=== PATIENT | female | born 1935 | race Caucasian/White ===

== ENCOUNTER 2016-10-05 06:47 | Inpatient (IN) | payer MEDICARE ==
--- NOTE | 2016-09-27 20:52 | HP ---
HISTORY AND PHYSICAL: DATE OF ADMISSION/SURGERY: 10/05/16 DATE OF OFFICE VISIT: 09/24/16 SURGEON: Kaitlynn Sy MD (DICTATED BY MICHELLE KUHN) PROCEDURE: Left total knee arthroplasty. CHIEF COMPLAINT: Left knee pain. HISTORY OF PRESENT ILLNESS: Ms. Aguilar is a 80-year-old female with complaints of left knee pain secondary to advanced osteoarthritis. She has failed conservative management and has elected to proceed for the left total knee arthroplasty, which is scheduled for 10/05/[address] Sy. PAST MEDICAL HISTORY: Hypertension, diabetes, osteoarthritis, and chronic low back pain. PAST SURGICAL HISTORY: Left knee arthroscopy, cataract removal. CURRENT MEDICATIONS: 1. Pravastatin sodium 80 mg once a day. 2. Diltiazem 120 mg once a day. 3. Lisinopril and hydrochlorothiazide 20/12.5 one tab in the a.m., one tab in the p.m. 4. Tramadol 50 mg every 6 hours as needed. 5. Nortriptyline 10 mg 1 tab q.h.s. 6. Multivitamins. 7. Vitamin C. 8. [place]-3. 9. [place]-6. 10. Aspirin 81 mg once a day. 11. Echinacea 8 mg twice a day. 12. Vitamin D3. 13. Metformin 500 mg once a day. 14. Lyrica 75 mg once a day. 15. Toujeo SoloStar 300 units/mL 24 units daily. 16. Calcium carbonate. 17. Systane eyedrops. 18. Tylenol p.r.n. ALLERGIES: To SUDAFED. FAMILY HISTORY: Diabetes and heart disease. SOCIAL HISTORY: She is a 80-year-old female. She lives alone. She does not smoke, use drugs, or alcohol. REVIEW OF SYSTEMS: A complete 14-point review of systems was reviewed with the patient, was positive for diabetes. The rest was negative and noncontributory. PHYSICAL EXAMINATION GENERAL: She is well-developed, well-nourished. She is in no acute distress. VITAL SIGNS: She stands 5 feet 4 inches tall, weighs 185 pounds, blood pressure is 138/63, her heart rate is 87. HEENT: Normocephalic, atraumatic. NECK: Supple. No palpable lymph nodes. Trachea is midline. PULMONARY: The lungs are clear to auscultation. No wheezes, rhonchi, or rales. CARDIO: Regular rate and rhythm. Strong S1, S2. No murmurs, gallops, or rubs. No peripheral edema. ABDOMEN: The abdomen is soft, nontender, nondistended. MUSCULOSKELETAL: Left lower extremity: Skin is intact. She has a moderate joint effusion, tenderness over the medial and lateral joint line. Full range of motion. Her lower extremity muscle group strengths are intact at 5/5. She has 2+ dorsalis pedis pulses and intact sensation. NEUROLOGIC: She is alert and oriented x3. Cranial nerves II through XII are intact. ASSESSMENT AND PLAN: Ms. Aguilar is a 80-year-old female with complaints of left knee pain secondary to advanced osteoarthritis. She has failed conservative management and has elected to proceed with left total knee arthroplasty, which is scheduled for 10/05/[address] Sy discussed the risks and benefits of the surgery at today's visit and all of her questions were answered. Percocet, Coumadin, and Colace were sent to her pharmacy for postoperative pain control and DVT prophylaxis. She will see Dr. Sy back 14 days after the surgery. MICHELLE KUHN [id number]/[facility] #: [id number] MTDD
[~2016-10-05 06:47] MED LIST: Buffered Lidocaine 1% SYR 3ML* 3 ML/SYR SYRINGE INTRADERM ONE; Famotidine IV* 10 MG/ML 2 ML (20 mg) IV ONE; Metoclopramide IV* 5 MG/ML 2 ML VIAL IV SLOW PU ONE
[2016-10-05] MEDS ORDERED: fentaNYL* 50 MCG/ML 2 ML VIAL (100 MCG VIAL) ONE ×3 (07:06→09:06)
[2016-10-05] MEDS ORDERED: HYDROmorphone* 1 MG/ML 1 ML SYR ONE ×3 (07:06→10:30)
[2016-10-05] MEDS ORDERED: Morphine PF AMP (0.5MG/ML)* 5 MG/10 ML AMP ONE (07:07)
[2016-10-05] MEDS ORDERED: Midazolam* 1 MG/ML 2 ML VIAL (2 MG) ONE (07:07)
[2016-10-05] MEDS ORDERED: ceFAZolin 2 GM PREMIX(*) 2 GM/50 ML BAG IVPB ONE (07:08)
[2016-10-05] MEDS ORDERED: Metoclopramide IV* 5 MG/ML 2 ML VIAL ONE (07:08)
[2016-10-05] MEDS ORDERED: Famotidine IV* 10 MG/ML 2 ML (20 mg) ONE (07:08)
[2016-10-05] MEDS ORDERED: Propofol* 10 MG/ML 20 ML BTL IV PUSH ONE (07:09)
[2016-10-05] MEDS ORDERED: Dexmedetomidine* 200 MCG/2 ML 2 ML VIAL ONE ×2 (07:09→07:20)
[2016-10-05] MEDS ORDERED: Bupivacaine 0.5% SDV PF* 30 ML VIAL ONE (07:21)
[2016-10-05] MEDS ORDERED: DiMENhydriNATE IV* 50 MG/ML VIAL IV PUSH PRN ×2 (07:50→11:21)
[2016-10-05] MEDS ORDERED: fentaNYL* 50 MCG/ML 2 ML VIAL (100 MCG VIAL) IV PRN (07:50)
[2016-10-05] MEDS ORDERED: PROCHLORPERAZINE INJ 5 MG/ML 2 ML VIAL IV PRN ×2 (07:50→11:21)
[2016-10-05] MEDS ORDERED: Ondansetron INJ* 2 MG/ML VIAL IV PRN ×2 (07:50→11:21)
[2016-10-05] MEDS ORDERED: Bupivacaine 0.5% W/EPI SDV* 30 ML VIAL ONE (07:57)
[2016-10-05] MEDS ORDERED: Meperidine SYRINGE* 50 MG/ML ONE (08:03)
[2016-10-05] MEDS ORDERED: VASOPRESSIN 20 UNITS/ML 1 ML VIAL ONE (09:36)
[2016-10-05] MEDS ORDERED: Acetaminophen TAB* 325 MG PO PRN (11:10)
[2016-10-05] MEDS ORDERED: Polyethylene Glycol 3350* 17 GM PACKET PO PRN (11:10)
[2016-10-05] MEDS ORDERED: Ondansetron TAB* 4 MG PO PRN (11:10)
[2016-10-05] MEDS ORDERED: Magnesium Hydroxide LIQ* 30 ML UDC PO PRN (11:10)
[2016-10-05] MEDS ORDERED: Bisacodyl SUPP* 10 MG SUPP PR PRN (11:10)
[2016-10-05] MEDS ORDERED: oxyCODONE/Acetamin 5/325 MG* TAB PO PRN (11:10)
[2016-10-05] MEDS ORDERED: Nalbuphine* 20 MG/ML 1 ML VIAL IV PRN (11:21)
[2016-10-05] MEDS ORDERED: Naloxone* 0.4 MG/ML 1 ML VIAL IV PRN (11:21)
[2016-10-05] MEDS ORDERED: diPHENhydraMINE IV* 50 MG/ML 1 ml VIAL (BENADRYL) IV PRN (11:21)
[2016-10-05] MEDS ORDERED: Dextrose 50% Syringe 50 ML* 25 GM/50 ML SYRINGE IV PUSH PRN (12:02)
--- NOTE | 2016-10-05 12:13 | RAD ---
Indication: Immediate postop exam following LEFT total knee replacement. Comparison: August 25, 2016 Technique: Portable AP and cross table lateral views LEFT knee. Report: Status post total knee replacement. Anterior cutaneous janet and surgical drain in place. Post-op fluid and gas is seen in the joint space and anterior subcutaneous tissues. Alignment is anatomic. No periprosthetic fracture evident. IMPRESSION: Unremarkable immediate postoperative appearance following LEFT knee replacement.
[2016-10-05] MEDS ORDERED: Ondansetron INJ* 2 MG/ML VIAL ONE (15:13)
--- NOTE | 2016-10-05 16:33 | CONS ---
CONSULTATION REPORT: DATE OF CONSULT: 10/05/16 PRIMARY CARE PHYSICIAN: Dr. Dereck Alex ATTENDING PHYSICIAN: Dr. Juan Sargent (dictated by Cindy Yang NP). PHYSICIAN REQUESTING CONSULTATION: Dr. Kaitlynn Sy REASON FOR CONSULTATION: Co-medical management in a patient with a history of hypertension, hyperlipidemia, and diabetes mellitus. HISTORY OF PRESENT ILLNESS: Ms. Aguilar is a 80-year-old female with past medical history significant for hypertension, diabetes mellitus, hyperlipidemia , chronic kidney disease stage 3, obesity, spinal stenosis, and osteoarthritis, who presented to the hospital for an elective left total knee arthroplasty with Dr. Sy. Postoperatively, the patient is doing well in the recovery room. The patient states that leading up to surgery, she has been in a good state of health with the exception of left knee pain. The patient denies any fever, chills, chest pain, shortness of breath. Hospitalists were asked to evaluate the patient and assist with management of her diabetes and hypertension during her hospital stay. PAST MEDICAL HISTORY: 1. Hypertension. 2. Diabetes mellitus. 3. Osteoarthritis. 4. Chronic back pain. 5. Hyperlipidemia. 6. Spinal stenosis. 7. Chronic kidney disease, stage 3. 8. Obesity. PAST SURGICAL HISTORY: 1. Status post left total knee arthroscopy. 2. Status post cataract extraction. HOME MEDICATIONS: Includes: 1. Pravastatin 80 mg oral daily. 2. Diltiazem 120 mg daily at bedtime. 3. Lisinopril/hydrochlorothiazide 20/12.5 mg one tablet oral twice daily. 4. Tramadol 50 mg oral every 6 hours as needed for pain. 5. Nortriptyline 10 mg oral daily at bedtime. 6. Multivitamin one tablet oral daily. 7. Vitamin C 500 mg oral daily. 8. [place]-3 of 1000 mg oral daily. 9. Aspirin 162 mg oral daily. 10. Vitamin D3 of 2000 units oral daily. 11. Lyrica 75 mg oral daily. 12. Toujeo SoloStar 24 units subcutaneously daily. 13. Calcium 600 mg oral daily. 14. Systane eye drops one drop to each eye daily at bedtime. 15. Acetaminophen as needed for pain. 16. Janumet 50-500 mg one tablet oral daily. 17. Echinacea 8 mg oral twice daily. ALLERGIES: SUDAFED. FAMILY HISTORY: The patient reports mother and father with history of heart disease and myocardial infarctions. The patient has a family history of diabetes mellitus in her mother, father, sister, brother, and maternal grandmother. The patient has no family history of cancer. SOCIAL HISTORY: The patient denies tobacco or recreational drug use. She occasionally drinks alcoholic beverages. The patient lives alone and is retired. Her sister, Alicia Luque, will be her surrogate decision maker in the event that she is unable to make decisions for herself. REVIEW OF SYSTEMS: I performed a 14-point review of systems. All the pertinent positive and negatives are mentioned in the history of present illness. The remaining review of systems are negative. PHYSICAL EXAM: Vital Signs: Temperature 96.8, heart rate 63, respiratory rate 14, O2 sat 98% on 3 L via nasal cannula, blood pressure 91/52. Appearance: The patient is drowsy, but appears to be in no acute distress. HEENT: Normocephalic, atraumatic. Pupils are equal and reactive to light. Extraocular movements are intact. Moist mucous membranes. Anicteric sclerae. Cardiac: Regular rate and rhythm. S1 and S2 present. There is no murmurs, rubs, or gallops. Extremity: There is no lower extremity edema. DP and PT pulses are 2+ and symmetric. Respiratory: There is no accessory muscle use and the lungs are clear to auscultation bilateral. Abdomen: Soft, nontender, and nondistended. Bowel sounds present x4. Musculoskeletal: There is no clubbing or cyanosis noted. The patient exhibits good strength in all extremities. Skin : There is a dressing on the left knee that is clean, dry, and intact. Neurologic: Cranial nerves II through XII are grossly intact. The patient moves all extremities. Psychological: The patient is calm and cooperative. DIAGNOSTIC STUDIES/LAB DATA: Preoperative labs from 09/24/16. Sodium 133, potassium 4.3, chloride 95, CO2 of 29, BUN 28, creatinine 1.12, glucose 175. Preop EKG shows normal sinus rhythm with a rate of 83. IMPRESSION: Ms. Aguilar is a 80-year-old female with past medical history significant for hypertension, diabetes mellitus, hyperlipidemia, chronic kidney disease stage 3, and osteoarthritis, who underwent an elective left total knee arthroplasty with Dr. Sy today. Hospitalists were asked to assist with co- management of this patient during her hospitalization. PLAN/RECOMMENDATIONS: 1. Status post left total knee arthroplasty. Postop day. Management will be per Orthopedic Surgery. The patient will have physical therapy and occupational therapy. We will have her H and H trended. Her urinary catheter will be removed on postop day 1. 2. Diabetes mellitus. The patient's last hemoglobin A1c on September 23 was 8.0. The patient will be continued on Lantus 24 units daily in addition to lispro sliding scale coverage with glucose checks before meals and at bedtime. We will hold the patient's Janumet. 3. Hypertension. At this time, the patient is actually hypotensive while in the recovery room. We will hold her lisinopril/hydrochlorothiazide and place holding parameters on her diltiazem. 4. Hyperlipidemia. The patient will be continued on her home pravastatin. 5. Fluids, electrolytes, and nutrition. The patient will be on a consistent carbohydrate diet. 6. DVT prophylaxis. The patient will be on Lovenox bridge to warfarin per Orthopedic Surgery. 7. Code status. Full code. 8. Disposition. Inpatient with disposition per Orthopedic Surgery. TIME SPENT: The time for this consultation was 60 minutes, 30 minutes was spent with the patient discussing medications, past medical history, and the events leading up to her arrival today and performing a physical examination. The case has been reviewed with the attending Dr. Sargent, who agrees with the plan of care. Reviewed by EBENEZER YI 10/07/16 1224 CC: Dr. Sy; Dr. Dereck Alex* [id number]/[facility] #: [id number] [facility] CENTERTerrence
[2016-10-05] MEDS ORDERED: Warfarin TAB(*) 6 MG PO ONE (17:00)
[2016-10-05] MEDS: ceFAZolin 1 GM in Dextrose (*) 1 GM/50 ML BAG IVPB SCH (17:01)
[2016-10-05] MEDS: oxyCODONE/Acetamin 5/325 MG* TAB PO PRN ×2 (17:08→21:19)
[2016-10-05] MEDS: Insulin LISPRO* 1 UNITS UNIT SUBCUT SCH (17:59)
[2016-10-05] MEDS ORDERED: DILTIAZEM HCL 120 MG PO SCH (21:00)
[2016-10-05] MEDS ORDERED: Lisinopril/HCTZ 20/12.5(NF) TAB PO SCH (21:00)
[2016-10-05] MEDS: Docusate CAP* 100 MG PO SCH (21:17)
[2016-10-05] MEDS: Diltiazem CD CAP* 120 MG PO SCH (21:17)
[2016-10-05] MEDS: Atorvastatin* 20 MG TAB PO SCH (21:17)
[2016-10-05] MEDS: Nortriptyline CAP* 10 MG PO SCH (21:18)
[2016-10-05] MEDS: Pregabalin CAP(*) 25 MG PO SCH (21:19)
[2016-10-06] MEDS: oxyCODONE/Acetamin 5/325 MG* TAB PO PRN ×3 (00:39→11:46)
[2016-10-06] MEDS: ceFAZolin 1 GM in Dextrose (*) 1 GM/50 ML BAG IVPB SCH ×2 (00:40→07:23)
--- NOTE | 2016-10-06 03:13 | OP ---
OPERATIVE REPORT: DATE OF OPERATION: 10/05/16 DATE OF : 39 SURGEON: Kaitlynn Sy MD PUBLISHING DIRECTOR: MICHELLE Lomeli This administrative assistant receptionist was used throughout the procedure for preparation of the leg, wound retraction, manip ulation of the knee, and wound closure. ANESTHESIOLOGIST: Dr. Min. ANESTHESIA: Spinal with adductor nerve block. PRE-OP DIAGNOSIS: Severe end-stage degenerative osteoarthritis of the left knee joint with valgus d eformity. POST-OP DIAGNOSIS: Severe end-stage degenerative osteoarthritis of the left knee joint with valgus deformity. OPERATIVE PROCEDURE: Left total knee arthroplasty. INDICATIONS: Ms. Aguilar is a 80-year-old female with years of increasingly severe left knee toni n. She failed conservative treatment with anti-inflammatories, pain medication, ambulatory assistiv e devices, and intra-articular injections. She developed increasingly severe valgus deformity over time. Due to continued pain and decreased quality of life, she elected to have left total knee arth roplasty. Informed consent was obtained from the patient. She understood the risks of the surgery i ncluded, but were not limited to, bleeding, infection, damage to nearby structures, continued pain, need for further surgery, stroke, heart attack, blood clot, and . She wished to proceed. TOURNIQUET TIME: 45 minutes. COMPLICATIONS: None. SPECIMEN: Bone and cartilage from left knee joint sent to Pathology. HARDWARE USED: Cemented Min [employer] Nephew total knee hardware with 2 packages of Simplex bone cement . For the femur, a size 4 left posterior stabilized femoral component narrow. For the tibia, a siz e 3 left tibial baseplate. For the insert, a 11-mm posterior stabilized articular insert size 3-4 a nd for the patella, 35-mm 3- peg all poly patella. ESTIMATED BLOOD LOSS: 200 cc. INTRAOPERATIVE FINDINGS: Intraoperatively, Ms. Aguilar was found to have severe end-stage arthri tis of the left knee joint. Patellofemoral compartment and lateral compartment had complete obliter ation of cartilage. 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 There is a preop valgus deformi ty of 20 degrees with flexion contracture of 10 degrees. Postoperatively, the patient had full exte nsion, 125 degrees of flexion, and valgus alignment of 5 degrees. DESCRIPTION OF PROCEDURE: Ms. Aguilar was identified in the pre-anesthesia unit. Her left lower extremity was marked as the correct operative side. Informed consent was signed and placed in the chart. The patient was taken to the operating room and placed under spinal anesthesia with an adduc tor nerve block. Gonsalez catheter was placed. Thigh-high tourniquet was placed on the left thigh. L eft lower extremity was prepped and draped in the usual sterile fashion. Preop time- out was made t o correctly identify the patient's side and site. Appropriate perioperative antibiotics were given within 1 hour of incision. Tourniquet was inflated and total tourniquet time for this procedure was 45 minutes. A 12-cm midlin e incision was made with a 10 blade and carried down to the extensor mechanism. A new 10 blade was used to make a standard medial parapatellar arthrotomy. The patella was subluxed laterally. Electr ocautery was used to subperiosteally elevate soft tissue off the superomedial tibia to the mid sagit dana plane. The knee was flexed up. The anterior horn of the lateral meniscus and ACL were sharply released. A drill was used to enter the distal femur. Intramedullary distal femoral cutting guide was pinned on the distal femur. Lateral femoral condylar hypoplasia was noted and accounted for. O scillating saw was used to make the distal femoral cut. The 3-degree jig was used. Next, the exter nal rotation guide was carefully pinned on the distal femur. Distal femur was sized to a size 4. Size 4 multi-cutting jig was pinned on the distal femur. Oscillating saw was used to make the a ppropriate chamfer cuts. Any bony fragments were carefully removed. PCL was completely released at this point. The tibia was subluxed anteriorly. Extramedullary tibial cutting guide was pinned on the proximal tibia. Oscillating saw was used to make the appropriate p roximal tibial cut. The bone was carefully removed. The knee was brought out into full extension a nd spacer block had good fit. Medial and lateral ligaments were well balanced. The knee was flexed up. Lamina cargo station worker was placed both medially and laterally. Any remaining meniscus was carefully r emoved. Any remaining posterior osteophytes were removed with a curved osteotome and curette. A size 4 left narrow femoral component trial was impacted on to the distal femur and had good fit. The box for the posterior stabilized implant was prepared using a reamer and box cut osteotome. Siz e 3 tibial tray trial with a 9-mm insert trial was placed and the knee was taken through a range of motion. The knee was stable in all positions and had full extension to 125 degrees of flexion with good patellofemoral tracking. 5 degrees of valgus alignment overall. The patella was carefully everted. 9 mm of patellar bone and cartilage carefully removed with an os cillating saw. The patella was sized to a size 35. Three peg holes were drilled through the size 3 5 guide. A 35 trial was placed and the knee was taken through a range of motion. There was good pa tellofemoral tracking. All trials were carefully removed. The tibia was subluxed anteriorly and sized to a size 3. Proxim al tibia was prepared using a size 3 keel punch. All bony cut surfaces were copiously irrigated wit h sterile saline and dried. The final components were cemented into place starting with the tibia f ollowed by the femur and lastly patella. An 11-mm insert trial was placed and the knee was brought out into full extension. Tourniquet was turned down at 45 minutes. The knee was copiously irrigated with sterile saline. El ectrocautery was used to meticulously obtain hemostasis. Once the cement was fully cured, the inser t trial was removed. Any excess cement was carefully removed from around the implant and capsule. Final insert chosen was an 11-mm posterior stabilized articular insert, size 3-4. This was locked i nto position on the tibial tray without difficulty. Stability of the insert was checked and recheck ed and noted to be stable. The knee was copiously irrigated with sterile saline. Extensor mechanism was closed using interrupt ed #1 Vicryl's over a medium Hemovac drain. The rest of the incision was closed in a layered fashio n using 0 and 2-0 Vicryl's. Skin was closed using running 3-0 nylon suture. Xeroform, 4x4, and Web ril were used to cover the incision. Homero wrap and cold pack were placed over this. The patient's anesthesia was reversed without difficulty. She was taken to the PACU in stable condi tion. Intended weightbearing will be weightbearing as tolerated. Intended DVT prophylaxis will be Coumadin with Lovenox bridge. [id number]/[facility] #: [id number]
[2016-10-06] MEDS ORDERED: diPHENhydraMINE IV* 50 MG/ML 1 ml VIAL (BENADRYL) IV PRN (03:22)
[2016-10-06] MEDS: oxyCODONE TAB* 5 MG TAB PO PRN ×3 (04:13→17:56)
[2016-10-06 06:44] LABS: Hematocrit 29 % (35-47)
[2016-10-06 06:57] LABS: EGFR African American 58.7 (>60); EGFR Non-African American 45.6 (>60); Potassium 4.6 mmol/L (3.5-5.0)
[2016-10-06] MEDS: Enoxaparin(*) 30 MG/0.3 ML SYR SUBCUT SCH (07:23)
[2016-10-06] MEDS: Morphine INJ* 2 MG/ML 1 ML SYRINGE IV PRN ×2 (07:32→13:56)
[2016-10-06] MEDS: Insulin LISPRO* 1 UNITS UNIT SUBCUT SCH ×3 (08:13→17:56)
[2016-10-06] MEDS: Insulin GLARGINE(*) 1 UNITS UNIT SUBCUT SCH (08:14)
[2016-10-06] MEDS: Docusate CAP* 100 MG PO SCH ×2 (08:14→21:24)
[2016-10-06] MEDS ORDERED: metFORMIN* 500 MG TAB PO SCH (09:00)
--- NOTE | 2016-10-06 09:02 | PN ---
Progress Note - Progress Note SOAP: Subjective: []Patient seen at bedside. Vomited last night but feels better this am. Denies SOB, CP, dizziness. Pain well managed right knee. Objective: [] Vital Signs Temp 97.9 F 10/06/16 07:33 Pulse 95 10/06/16 07:33 Resp 18 10/06/16 08:32 BP 129/83 10/06/16 07:33 Pulse Ox 96 10/06/16 08:00 Intake & Output 10/05/16 10/06/16 10/06/16 18:59 06:59 18:59 Intake Total 4000 2451 120 Output Total 950 1050 Balance 3050 1401 120 Weight 191 lb Intake: IV Fluids 4000 958 LR 4000 958 IVPB 53 cefazolin 53 Oral 1440 120 Output: Gonsalez 375 1050 Emesis 325 Estimated Blood Loss 250 Laboratory Results - last 24 hr 10/05/16 10/05/16 10/05/16 11:56 17:06 21:16 Hgb Hct INR (Anticoag Therapy) Sodium Potassium Chloride Carbon Dioxide Anion Gap BUN Creatinine Est GFR ( Amer) Est GFR (Non-Af Amer) BUN/Creatinine Ratio Glucose POC Glucose (mg/dL) 186 H 179 H 215 H Calcium 10/06/16 10/06/16 10/06/16 06:23 06:23 06:23 Hgb 10.0 L Hct 29 L INR (Anticoag Therapy) 0.97 Sodium 129 L Potassium 4.6 Chloride 95 L Carbon Dioxide 28 Anion Gap 6 BUN 23 Creatinine 1.15 H Est GFR ( Amer) 58.7 Est GFR (Non-Af Amer) 45.6 BUN/Creatinine Ratio 20.0 Glucose 213 H POC Glucose (mg/dL) Calcium 8.0 L 10/06/16 07:25 Hgb Hct INR (Anticoag Therapy) Sodium Potassium Chloride Carbon Dioxide Anion Gap BUN Creatinine Est GFR ( Amer) Est GFR (Non-Af Amer) BUN/Creatinine Ratio Glucose POC Glucose (mg/dL) 200 H Calcium Right knee AVA dry and intact Hemovac drain discontinued without difficulty, tip intact calf nontender and soft +DF/PF right ankle sensation intact distally Assessment: []s/p Right total knee arthroplasty POD #1 Plan: []PT/OT WBAT RLE ASA 325 mg qd / Lovenox Home tuesday
--- NOTE | 2016-10-06 09:46 | PN ---
Progress Note - Progress Note SOAP: Subjective: []Patient seen OOB in chair. Mildly confused this am to where she was and what day it is. "I'm just extra tired today." Denies SOB, CP or dizziness. Objective: [] Vital Signs Temp 97.9 F 10/06/16 07:33 Pulse 95 10/06/16 07:33 Resp 18 10/06/16 08:32 BP 129/83 10/06/16 07:33 Pulse Ox 96 10/06/16 08:00 Intake & Output 10/05/16 10/06/16 10/06/16 18:59 06:59 18:59 Intake Total 4000 2451 120 Output Total 950 1050 Balance 3050 1401 120 Weight 191 lb Intake: IV Fluids 4000 958 LR 4000 958 IVPB 53 cefazolin 53 Oral 1440 120 Output: Gifford 375 1050 Emesis 325 Estimated Blood Loss 250 Laboratory Results - last 24 hr 10/05/16 10/05/16 10/05/16 11:56 17:06 21:16 Hgb Hct INR (Anticoag Therapy) Sodium Potassium Chloride Carbon Dioxide Anion Gap BUN Creatinine Est GFR ( Amer) Est GFR (Non-Af Amer) BUN/Creatinine Ratio Glucose POC Glucose (mg/dL) 186 H 179 H 215 H Calcium 10/06/16 10/06/16 10/06/16 06:23 06:23 06:23 Hgb 10.0 L Hct 29 L INR (Anticoag Therapy) 0.97 Sodium 129 L Potassium 4.6 Chloride 95 L Carbon Dioxide 28 Anion Gap 6 BUN 23 Creatinine 1.15 H Est GFR ( Amer) 58.7 Est GFR (Non-Af Amer) 45.6 BUN/Creatinine Ratio 20.0 Glucose 213 H POC Glucose (mg/dL) Calcium 8.0 L 10/06/16 07:25 Hgb Hct INR (Anticoag Therapy) Sodium Potassium Chloride Carbon Dioxide Anion Gap BUN Creatinine Est GFR ( Amer) Est GFR (Non-Af Amer) BUN/Creatinine Ratio Glucose POC Glucose (mg/dL) 200 H Calcium Left knee AVA is dry and intact calf mild tenderness, Nicolasa's negative +DF/PF left ankle sensation intact distally Hemovac drain discontinued without difficulty, tip intact Assessment: []s/p Left total knee arthroplasty POD #1 Plan: []PT/OT WBAT LLE D/C gifford Coumadin with Lovenox bridge, 8 mg today Home Tuesday with VNS
--- NOTE | 2016-10-06 09:52 | PN ---
Subjective Date of Service: 10/06/16 Interval History: Patient seen this morning. Had some confusion overnight and this AM. Initially thought she was home and then at convenient care. Recognized this when I spoke to her, blames it on being tired, says she has not taken pain medications like these for a very long time. No fever, chills, CP, SOB. Gonsalez removed, not sure if she has moved her bowels. Good PO intake this morning with no further N/V. Family History: Unchanged from Admission Social History: Unchanged from Admission Past Medical History: Unchanged from Admission Objective Active Medications: Acetaminophen (Tylenol Tab*) 650 mg PO Q4H PRN Atorvastatin Calcium (Lipitor*) 20 mg PO BEDTIME PACO Bisacodyl (Dulcolax Supp*) 10 mg [place] DAILY PRN Dextrose (D50w Syringe 50 Ml*) 12.5 gm IV PUSH .FOR FS < 60 - SS PRN Diltiazem HCl (Cardizem Cd Cap*) 120 mg PO BEDTIME PACO Diphenhydramine HCl (Benadryl Iv*) 12.5 mg IV Q6H PRN Docusate Sodium (Colace Cap*) 100 mg PO BID PACO Enoxaparin Sodium (Lovenox(*)) 30 mg SUBCUT Q24H PACO Lactated Ringer's (Lactated Ringers 1000 Ml Bag*) 1,000 mls @ 100 mls/hr IV PER RATE PACO Insulin Glargine (Lantus(*)) 24 units SUBCUT QAM PACO Insulin Human Lispro (Humalog*) 0 - 10 units SUBCUT AC PACO Lactulose (Lactulose*) 30 ml PO Q6H PRN Magnesium Hydroxide (Milk Of Magnesia Liq*) 30 ml PO Q6H PRN Morphine Sulfate (Morphine Inj (Syringe)*) 2 mg IV Q2H PRN (Systane Ultra 0.4-0 (.3 % 1 Drop)) 1 drop BOTH EYES BEDTIME PACO Nortriptyline HCl (Pamelor Cap*) 10 mg PO BEDTIME PACO Ondansetron HCl (Zofran Tab*) 4 mg PO Q6H PRN Oxycodone HCl (Roxycodone Tab*) 10 mg PO Q4H PRN Oxycodone/Acetaminophen (Percocet 5/325 Tab*) 1 tab PO Q3H PRN Oxycodone/Acetaminophen (Percocet 5/325 Tab*) 2 tab PO Q3H PRN Pharmacy Profile Note (Coumadin Daily Reminder*) 1 note FOLLOW UP 1700 PACO Polyethylene Glycol/Electrolytes (Miralax*) 17 gm PO DAILY PRN Pregabalin (Lyrica Cap(*)) 75 mg PO BEDTIME PACO Vital Signs 10/05/16 10/05/16 10/05/16 11:10 11:15 11:20 Temperature 96.8 F Pulse Rate 60 59 58 Respiratory 12 12 10 Rate Blood Pressure 74/41 103/49 98/42 (mmHg) O2 Sat by Pulse 97 96 95 Oximetry 10/05/16 10/05/16 10/06/16 23:19 23:21 00:00 Temperature 97.4 F Pulse Rate 78 Respiratory 16 15 Rate Blood Pressure 135/54 (mmHg) O2 Sat by Pulse 87 87 Oximetry 10/06/16 10/06/16 10/06/16 07:33 08:00 08:32 Temperature 97.9 F Pulse Rate 95 Respiratory 16 16 18 Rate Blood Pressure 129/83 (mmHg) O2 Sat by Pulse 96 96 Oximetry Oxygen Devices in Use Now: None Appearance: [place], F, laying in bed in NAD Eyes: No Scleral Icterus Ears/Nose/Mouth/Throat: Mucous Membranes Moist Neck: NL Appearance and Movements; NL JVP Respiratory: Symmetrical Chest Expansion and Respiratory Effort, Clear to Auscultation Cardiovascular: NL Sounds; No Murmurs; No JVD, RRR Abdominal: NL Sounds; No Tenderness; No Distention Lymphatic: No Cervical Adenopathy Extremities: - - L knee with cryo unit in place, able to move toes and sensation intact distally Neurological: Alert and Oriented x 3 Result Diagrams: 10/06/16 06:23 10/06/16 06:23 Assess/Plan/Problems-Billing Assessment: 80 yo F with hx of HTN, HLD, DM, CKD3 and OA now s/p L TKA on 10/[address] Sy - Patient Problems (1) S/P total knee arthroplasty Current Visit: Yes Comment: Management as per Orthopedics. On Lovenox/ Coumadin for DVT ppx. INR being monitored. Some confusion this AM, likely due to lack of sleep and narcotics, AOx3 now, do not think she is delirious. Gonsalez removed. (2) Diabetes Current Visit: Yes Comment: BGs slightly high, unclear if patient got her AM Lantus yesterday, will continue current dose along with HISS and monitor. Holding home Janumet. (3) HTN (hypertension) Current Visit: Yes Comment: BPs stable, continue Diltiazem for now. Continue to hold Lisinopril/HCTZ (4) HLD (hyperlipidemia) Current Visit: Yes Comment: Continue statin (5) CKD (chronic kidney disease) stage 3, GFR 30-59 ml/min Current Visit: Yes Comment: Stable (6) DVT prophylaxis Current Visit: Yes Comment: Lovenox/Coumadin
[2016-10-06] MEDS: Ketorolac INJ* 30 MG/ML 1 ML VIAL IV PUSH PRN (16:03)
[2016-10-06] MEDS ORDERED: Warfarin TAB(*) 4 MG PO ONE (17:00)
[2016-10-06] MEDS: Pregabalin CAP(*) 25 MG PO SCH (21:22)
[2016-10-06] MEDS: Diltiazem CD CAP* 120 MG PO SCH (21:23)
[2016-10-06] MEDS: Nortriptyline CAP* 10 MG PO SCH (21:23)
[2016-10-06] MEDS: Atorvastatin* 20 MG TAB PO SCH (21:23)
[2016-10-07] MEDS: oxyCODONE TAB* 5 MG TAB PO PRN (07:22)
--- NOTE | 2016-10-07 07:46 | PN ---
Progress Note - Progress Note SOAP: Subjective: Pt. is confused, angry this AM. Objective: LLE - dressing changed, inc c/d/i. distally nvi. min edema. Vital Signs: Temp Pulse Resp BP Pulse Ox 98.2 F 99 18 152/61 94 10/07/16 07:19 10/07/16 07:19 10/07/16 07:22 10/07/16 07:19 10/07/16 07:19 Laboratory Results - last 24 hr 10/06/16 10/06/16 10/07/16 11:51 16:26 00:09 POC Glucose (mg/dL) 246 H 190 H 223 H 10/07/16 07:17 POC Glucose (mg/dL) 200 H Laboratory Results - last 24 hr 10/06/16 10/06/16 10/07/16 11:51 16:26 00:09 POC Glucose (mg/dL) 246 H 190 H 223 H 10/07/16 07:17 POC Glucose (mg/dL) 200 H Assessment: 80 yo F pod 2 s/p LTKA Plan: Postop delirium is severe this AM Limited narcotic use wbat lle - pt/ot high fall risk plan snf rehab vs home plan - send packet today please labs pending coumadin with lovenox bridge
[2016-10-07] MEDS: Insulin GLARGINE(*) 1 UNITS UNIT SUBCUT SCH (08:37)
[2016-10-07] MEDS: Insulin LISPRO* 1 UNITS UNIT SUBCUT SCH ×3 (08:37→17:27)
[2016-10-07] MEDS: Docusate CAP* 100 MG PO SCH ×3 (08:37→20:24)
[2016-10-07 08:58] LABS: Hematocrit 28 % (35-47); Hemoglobin 9.6 g/dl (12.0-16.0)
--- NOTE | 2016-10-07 09:11 | PN ---
Subjective Date of Service: 10/07/16 Interval History: Agitated overnight with some episodes of confusion. Patient seen this morning. Reports pain, feels annoyed and frustrated. Attentive and appropriately responsive to questioning. Denies fever, chills, chest pain, SOB. As per nursing has been a bit paranoid this morning with some confusion. Currently she told me "they say I'm in the hospital but I think I'm in the long-term". Recalls she had a knee replacement and is able to tell me the month and year. Seems insulted at my questioning saying "I'm a very smart person". Family History: Unchanged from Admission Social History: Unchanged from Admission Past Medical History: Unchanged from Admission Objective Active Medications: Acetaminophen (Tylenol Tab*) 650 mg PO Q4H PRN PRN Reason: PAIN OR TEMPERATURE Atorvastatin Calcium (Lipitor*) 20 mg PO BEDTIME [facility] Last Admin: 10/06/16 21:23 Dose: 20 mg Bisacodyl (Dulcolax Supp*) 10 mg [place] DAILY PRN PRN Reason: constipation Dextrose (D50w Syringe 50 Ml*) 12.5 gm IV PUSH .FOR FS < 60 - SS PRN PRN Reason: FS < 60 Diltiazem HCl (Cardizem Cd Cap*) 120 mg PO BEDTIME [facility] Last Admin: 10/06/16 21:23 Dose: 120 mg Diphenhydramine HCl (Benadryl Iv*) 12.5 mg IV Q6H PRN PRN Reason: PRURITIS Docusate Sodium (Colace Cap*) 100 mg PO BID [facility] Last Admin: 10/07/16 08:37 Dose: 100 mg Enoxaparin Sodium (Lovenox(*)) 30 mg SUBCUT Q24H [facility] Last Admin: 10/06/16 07:23 Dose: 30 mg Lactated Ringer's (Lactated Ringers 1000 Ml Bag*) 1,000 mls @ 100 mls/hr IV PER RATE [facility] Last Admin: 10/06/16 00:43 Dose: 100 mls/hr Insulin Glargine (Lantus(*)) 24 units SUBCUT QAM [facility] Last Admin: 10/07/16 08:37 Dose: 24 units Insulin Human Lispro (Humalog*) 0 - 10 units SUBCUT AC [facility] PRN Reason: Protocol Last Admin: 10/07/16 08:37 Dose: 2 units Ketorolac Tromethamine (Toradol Inj*) 15 mg IV PUSH Q6H PRN PRN Reason: moderate to severe pain Last Admin: 10/06/16 16:03 Dose: 15 mg Lactulose (Lactulose*) 30 ml PO Q6H PRN PRN Reason: constipation Magnesium Hydroxide (Milk Of Magnesia Liq*) 30 ml PO Q6H PRN PRN Reason: constipation Last Admin: 10/06/16 08:14 Dose: 30 ml Morphine Sulfate (Morphine Inj (Syringe)*) 2 mg IV Q2H PRN PRN Reason: PAIN Last Admin: 10/06/16 13:56 Dose: 2 mg (Systane Ultra 0.4-0 (.3 % 1 Drop)) 1 drop BOTH EYES BEDTIME PACO Last Admin: 10/06/16 21:41 Dose: Not Given Nortriptyline HCl (Pamelor Cap*) 10 mg PO BEDTIME [facility] Last Admin: 10/06/16 21:23 Dose: 10 mg Ondansetron HCl (Zofran Tab*) 4 mg PO Q6H PRN PRN Reason: NAUSEA Last Admin: 10/06/16 07:32 Dose: 4 mg Oxycodone HCl (Roxycodone Tab*) 10 mg PO Q4H PRN PRN Reason: SEVERE PAIN Last Admin: 10/07/16 07:22 Dose: 10 mg Oxycodone/Acetaminophen (Percocet 5/325 Tab*) 1 tab PO Q3H PRN PRN Reason: PAIN - MODERATE Oxycodone/Acetaminophen (Percocet 5/325 Tab*) 2 tab PO Q3H PRN PRN Reason: PAIN - MODERATE Last Admin: 10/06/16 11:46 Dose: 2 tab Pharmacy Profile Note (Coumadin Daily Reminder*) 1 note FOLLOW UP 1700 [facility] Last Admin: 10/06/16 17:43 Dose: 1 note Polyethylene Glycol/Electrolytes (Miralax*) 17 gm PO DAILY PRN PRN Reason: Constipation Pregabalin (Lyrica Cap(*)) 75 mg PO BEDTIME [facility] Last Admin: 10/06/16 21:22 Dose: 75 mg Vital Signs 10/06/16 10/06/16 10/06/16 09:31 11:26 11:46 Temperature 97.8 F Pulse Rate 92 Respiratory 18 16 18 Rate Blood Pressure 129/61 (mmHg) O2 Sat by Pulse 89 Oximetry 10/06/16 10/06/16 10/06/16 19:43 19:56 21:03 Temperature 96.7 F 98.1 F Pulse Rate 78 75 Respiratory 16 18 18 Rate Blood Pressure 156/38 154/50 (mmHg) O2 Sat by Pulse 93 98 Oximetry 10/07/16 10/07/16 10/07/16 00:00 00:41 07:19 Temperature 97.5 F 98.2 F Pulse Rate 85 99 Respiratory 16 16 Rate Blood Pressure 149/63 152/61 (mmHg) O2 Sat by Pulse 100 100 94 Oximetry Oxygen Devices in Use Now: None Appearance: Elderly, F, sitting in chair in NAD Eyes: No Scleral Icterus Ears/Nose/Mouth/Throat: Mucous Membranes Moist Neck: NL Appearance and Movements; NL JVP Respiratory: Symmetrical Chest Expansion and Respiratory Effort, Clear to Auscultation Cardiovascular: NL Sounds; No Murmurs; No JVD, RRR Abdominal: NL Sounds; No Tenderness; No Distention Lymphatic: No Cervical Adenopathy Extremities: - - L cryounit in place Skin: No Rash or Ulcers Neurological: - - Alert, oriented to self, "long-term", year, month. No focal deficits Result Diagrams: 10/07/16 08:38 10/06/16 06:23 Assess/Plan/Problems-Billing Assessment: 80 yo F with hx of HTN, HLD, DM, CKD3 and OA now s/p L TKA on 10/[address] Sy - Patient Problems (1) S/P total knee arthroplasty Current Visit: Yes Comment: Management as per Orthopedics. On Lovenox/ Coumadin for DVT ppx. INR being monitored. (2) Delirium Current Visit: Yes Comment: May have some slight delirium, very ornery today. ?due to pain medication. Will change from prn Percocet to Oxycodone alone and start ATC tylenol. Will recheck electrolytes and get UA. (3) Diabetes Current Visit: Yes Comment: Continue Lantus along with HISS. Holding home Janumet. (4) HTN (hypertension) Current Visit: Yes Comment: BPs trending up, resume Lisinopril, continue Diltiazem. Continue to hold HCTZ (5) HLD (hyperlipidemia) Current Visit: Yes Comment: Continue statin (6) CKD (chronic kidney disease) stage 3, GFR 30-59 ml/min Current Visit: Yes Comment: Stable on 10/06, will recheck (7) DVT prophylaxis Current Visit: Yes Comment: Lovenox/Coumadin
[2016-10-07] MEDS ORDERED: oxyCODONE TAB* 5 MG TAB PO PRN ×2 (09:36→09:37)
[2016-10-07] MEDS: Lisinopril TAB* 10 MG PO SCH (10:10)
[2016-10-07] MEDS: Enoxaparin(*) 30 MG/0.3 ML SYR SUBCUT SCH (10:10)
[2016-10-07] MEDS: Acetaminophen TAB* 325 MG PO SCH ×3 (10:10→20:23)
[2016-10-07 11:45] LABS: Urine Bacteria Absent (Absent); Urine Bilirubin Negative (Negative); Urine Glucose 1+(50 mg/dL) (Negative); Urine Nitrite Negative (Negative)
[2016-10-07 12:17] LABS: Albumin 3.3 g/dL (3.2-5.2); BUN/Creatinine Ratio 19.5 (8-20); Calcium 8.4 mg/dL (8.6-10.3); EGFR African American 59.9 (>60); EGFR Non-African American 46.6 (>60); Globulin 3.1 g/dL (2-4); Potassium 4.7 mmol/L (3.5-5.0); Total Bilirubin 0.6 mg/dL (0.2-1.0); Total Protein 6.4 g/dL (6.4-8.9)
[2016-10-07] MEDS ORDERED: Warfarin TAB(*) 4 MG PO ONE (17:00)
[2016-10-07] MEDS: Pregabalin CAP(*) 25 MG PO SCH (20:22)
[2016-10-07] MEDS: Diltiazem CD CAP* 120 MG PO SCH (20:24)
[2016-10-07] MEDS: Nortriptyline CAP* 10 MG PO SCH (20:24)
[2016-10-07] MEDS: Atorvastatin* 20 MG TAB PO SCH (20:24)
--- NOTE | 2016-10-07 20:31 | RAD ---
Indication: Hypoxia. Single frontal view of the chest performed at 1932 hours was reviewed. Comparison is made with previous exam dated September 24, 2016. No mediastinal shift is noted. Heart is of normal size and configuration. Lung sanchez appear clear. IMPRESSION: NO ACTIVE CARDIOPULMONARY DISEASE IS NOTED.
[2016-10-07] MEDS: Ketorolac INJ* 30 MG/ML 1 ML VIAL IV PUSH PRN (23:43)
[2016-10-08 06:59] LABS: Hematocrit 23 % (35-47); Hemoglobin 8.1 g/dl (12.0-16.0)
[2016-10-08 07:14] LABS: Calcium 7.6 mg/dL (8.6-10.3); EGFR African American 53.8 (>60); EGFR Non-African American 41.8 (>60); Potassium 4.3 mmol/L (3.5-5.0)
[2016-10-08] MEDS: Enoxaparin(*) 30 MG/0.3 ML SYR SUBCUT SCH (08:43)
[2016-10-08] MEDS: Lisinopril TAB* 10 MG PO SCH (08:44)
[2016-10-08] MEDS: Acetaminophen TAB* 325 MG PO SCH (08:44)
[2016-10-08] MEDS: Docusate CAP* 100 MG PO SCH (08:44)
[2016-10-08] MEDS: Insulin LISPRO* 1 UNITS UNIT SUBCUT SCH (08:47)
[2016-10-08] MEDS: Insulin GLARGINE(*) 1 UNITS UNIT SUBCUT SCH (08:48)
--- NOTE | 2016-10-08 10:53 | PN ---
Progress Note - Progress Note SOAP: Subjective: 80 year old female s/p LEFT total knee replacement. Patient alert and oriented to self and place, very pleasant, answered all questions appropriately. Prior plan to was for D/C home with sister, however sister voiced concerns about being able to care for her. Patient informed that plan would be to go to rehab or senior care, patient was in agreement with this plan , however voiced she hoped it wouldn't be for long. States pain controlled. VSS overnight, pulse in 90's, baseline from H&P/ pre-op. Afebrile. Objective: General- Well appearing, NAD, sitting in chair comfortably. MSK- Dressing removed from L knee, no drainage noted, no erythema. Sutures intact. Patient being knee to 90 without difficulty. PT pulses 2+ b/l, neg homans sign b/l. sensation intact. Vital Signs Temp 98.6 F 10/08/16 07:36 Pulse 104 10/08/16 07:36 Resp 15 10/08/16 07:36 BP 144/58 10/08/16 07:36 Pulse Ox 90 10/08/16 07:36 Intake & Output 10/07/16 10/08/16 10/08/16 18:59 06:59 18:59 Intake Total 500 1200 Output Total 1550 1050 600 Balance -1050 150 -600 Intake: Oral 500 1200 Output: Urine 1550 1050 600 Other: # Bowel Movements 0 Laboratory Results - last 24 hr 10/07/16 10/07/16 10/07/16 10:50 11:32 12:19 Hgb Hct INR (Anticoag Therapy) Sodium 125 L Potassium 4.7 Chloride 91 L Carbon Dioxide 28 Anion Gap 6 BUN 22 Creatinine 1.13 H Est GFR ( Amer) 59.9 Est GFR (Non-Af Amer) 46.6 BUN/Creatinine Ratio 19.5 Glucose 206 H POC Glucose (mg/dL) 199 H Calcium 8.4 L Total Bilirubin 0.60 AST 22 ALT 15 Alkaline Phosphatase 47 Total Protein 6.4 Albumin 3.3 Globulin 3.1 Albumin/Globulin Ratio 1.1 Urine Color Straw Urine Appearance Clear Urine pH 5.0 Ur Specific [place] 1.008 L Urine Protein Negative Urine Ketones Negative Urine Blood 2+ H Urine Nitrate Negative Urine Bilirubin Negative Urine Urobilinogen Negative Ur Leukocyte Esterase 1+ H Urine WBC (Auto) Trace(0-5/hpf) Urine RBC (Auto) 3+(>10/hpf) H Urine Bacteria Absent Ur Random Sodium Urine Glucose 1+(50 mg/dl) H 10/07/16 10/07/16 10/08/16 16:49 17:31 06:49 Hgb 8.1 L Hct 23 L INR (Anticoag Therapy) Sodium Potassium Chloride Carbon Dioxide Anion Gap BUN Creatinine Est GFR ( Amer) Est GFR (Non-Af Amer) BUN/Creatinine Ratio Glucose POC Glucose (mg/dL) 190 H Calcium Total Bilirubin AST ALT Alkaline Phosphatase Total Protein Albumin Globulin Albumin/Globulin Ratio Urine Color Urine Appearance Urine pH Ur Specific [place] Urine Protein Urine Ketones Urine Blood Urine Nitrate Urine Bilirubin Urine Urobilinogen Ur Leukocyte Esterase Urine WBC (Auto) Urine RBC (Auto) Urine Bacteria Ur Random Sodium < 18 Urine Glucose 10/08/16 10/08/16 10/08/16 06:49 06:49 08:04 Hgb Hct INR (Anticoag Therapy) 3.29 H Sodium 133 D Potassium 4.3 Chloride 95 L Carbon Dioxide 30 Anion Gap 8 BUN 26 H Creatinine 1.24 H Est GFR ( Amer) 53.8 Est GFR (Non-Af Amer) 41.8 BUN/Creatinine Ratio 21.0 H Glucose 154 H POC Glucose (mg/dL) 191 H Calcium 7.6 L Total Bilirubin AST ALT Alkaline Phosphatase Total Protein Albumin Globulin Albumin/Globulin Ratio Urine Color Urine Appearance Urine pH Ur Specific [place] Urine Protein Urine Ketones Urine Blood Urine Nitrate Urine Bilirubin Urine Urobilinogen Ur Leukocyte Esterase Urine WBC (Auto) Urine RBC (Auto) Urine Bacteria Ur Random Sodium Urine Glucose Assessment: 80 year old female s/p LEFT total knee replacement 10/05. Plan: - D/C to [facility] today- Patient appears stable from a congnitive standpoint. Prior reports of having delirium/ agitation, however patient alert, pleasant at todays visit - PT- Patient worked well with PT today. - DVT prophylaxis- Coumadin, INR supratheraputic today. - Anemia- Likely dilutional. VSS, continue to monitor daily. No signs of bleeding. - Follow up with Dr. Sy within 10-14 days Active Medications Generic Name Dose Route Start Last Admin Trade Name Freq PRN Reason Stop Dose Admin Acetaminophen 975 mg 10/07/16 09:38 10/08/16 08:44 Tylenol Tab* PO 975 mg TID PACO Administration Atorvastatin Calcium 20 mg 10/05/16 21:00 10/07/16 20:24 Lipitor* PO 20 mg BEDTIME PACO Administration Bisacodyl 10 mg 10/05/16 11:10 Dulcolax Supp* DC DAILY PRN constipation Dextrose 12.5 gm 10/05/16 12:02 D50w Syringe 50 Ml* IV PUSH .FOR FS < 60 - SS PRN FS < 60 Diltiazem HCl 120 mg 10/05/16 21:00 10/07/16 20:24 Cardizem Cd Cap* PO 120 mg BEDTIME PACO Administration Diphenhydramine HCl 12.5 mg 10/06/16 03:22 Benadryl Iv* IV Q6H PRN PRURITIS Docusate Sodium 100 mg 10/05/16 21:00 10/08/16 08:44 Colace Cap* PO 100 mg BID PACO Administration Lactated Ringer's 1,000 mls @ 100 mls/hr 10/05/16 12:00 10/06/16 00:43 Lactated Ringers 1000 Ml Bag* IV 100 mls/hr PER RATE PACO Administration Insulin Glargine 24 units 10/06/16 09:00 10/08/16 08:48 Lantus(*) SUBCUT 24 units QAM PACO Administration Insulin Human Lispro 0 - 10 units 10/05/16 16:30 10/08/16 08:47 Humalog* SUBCUT 2 units AC PACO Administration Protocol Ketorolac Tromethamine 15 mg 10/06/16 15:37 10/07/16 23:43 Toradol Inj* IV PUSH 15 mg Q6H PRN Administration moderate to severe pain Lactulose 30 ml 10/05/16 11:10 Lactulose* PO Q6H PRN constipation Lisinopril 20 mg 10/07/16 10:00 10/08/16 08:44 Prinivil Tab* PO 20 mg DAILY PACO Administration Magnesium Hydroxide 30 ml 10/05/16 11:10 10/06/16 08:14 Milk Of Magnesia Liq* PO 30 ml Q6H PRN Administration constipation Morphine Sulfate 2 mg 10/05/16 11:10 10/06/16 13:56 Morphine Inj (Syringe)* IV 2 mg Q2H PRN Administration PAIN (Systane Ultra 0.4-0 1 drop 10/05/16 21:00 10/07/16 20:37 .3 % 1 Drop) BOTH EYES Not Given BEDTIME PACO Nortriptyline HCl 10 mg 10/05/16 21:00 10/07/16 20:24 Pamelor Cap* PO 10 mg BEDTIME PACO Administration Ondansetron HCl 4 mg 10/05/16 11:10 10/06/16 07:32 Zofran Tab* PO 4 mg Q6H PRN Administration NAUSEA Oxycodone HCl 5 mg 10/07/16 09:36 Roxycodone Tab* PO Q4H PRN PAIN Oxycodone HCl 10 mg 10/07/16 09:37 Roxycodone Tab* PO Q4H PRN SEVERE PAIN Pharmacy Profile Note 1 note 10/05/16 17:00 10/07/16 17:31 Coumadin Daily Reminder* FOLLOW UP 1 note 1700 PACO Administration Polyethylene Glycol/Electrolytes 17 gm 10/05/16 11:10 Miralax* PO DAILY PRN Constipation Pregabalin 75 mg 10/05/16 21:00 10/07/16 20:22 Lyrica Cap(*) PO 75 mg BEDTIME PACO Administration -
[2016-10-08 12:14] VITALS: BP 150/63
[2016-10-08] MEDS ORDERED: Simethicone CHEW TAB* 80 MG PO ONE (12:31)
== END 2016-10-08 12:30 | DRG 470 ==
LOC: AA 06:47 → SSU 15:20
PROVIDERS: ADMIT Orthopaedic Surgery Adult Reconstructive Orthopaedic Surgery; ATTEND Orthopaedic Surgery Adult Reconstructive Orthopaedic Surgery
PROC: 0SRD0J9 Replacement of Left Knee Joint with Synthetic Substitute, Cemented, Open Approach (ICD-10-PCS; principal; 2016-10-05 08:30)
DX: M17.12 Unilateral primary osteoarthritis, left knee (principal); F05 Delirium due to known physiological condition; E11.22 Type 2 diabetes mellitus with diabetic chronic kidney disease; M54.5 Low back pain; G89.29 Other chronic pain; I12.9 Hypertensive chronic kidney disease with stage 1 through stage 4 chronic kidney disease, or unspecified chronic kidney disease; E78.5 Hyperlipidemia, unspecified; M21.062 Valgus deformity, not elsewhere classified, left knee; M41.9 Scoliosis, unspecified; E66.9 Obesity, unspecified; M48.00 Spinal stenosis, site unspecified; D64.9 Anemia, unspecified; R45.1 Restlessness and agitation; Z68.32 Body mass index [BMI] 32.0-32.9, adult; Z79.82 Long term (current) use of aspirin; Z79.84 Long term (current) use of oral hypoglycemic drugs; Z83.3 Family history of diabetes mellitus; Z82.49 Family history of ischemic heart disease and other diseases of the circulatory system; Z88.8 Allergy status to other drugs, medicaments and biological substances; Z98.49 Cataract extraction status, unspecified eye; Z91.81 History of falling; Q72.892 Other reduction defects of left lower limb
CPT/HCPCS: 36415; 71010; 80048; 80053; 81003; 81015; 83935; 84300; 85014; 85018; 85610; 87086; 88305; 88311; A9270-GY; C1776; J0690; J1170; J1650; J1885; J2250; J2270; J2405; J2704; J3010

== ENCOUNTER 2016-10-08 10:33 | Inpatient (IN) | payer MEDICARE ==
[2016-10-08] MEDS ORDERED: Senna TAB PO PRN (12:56)
[2016-10-08] MEDS ORDERED: Magnesium Hydroxide LIQ* 30 ML UDC PO PRN (12:56)
[2016-10-08] MEDS ORDERED: Bisacodyl SUPP* 10 MG SUPP PR PRN (12:56)
[2016-10-08] MEDS ORDERED: Dextrose 50% Syringe 50 ML* 25 GM/50 ML SYRINGE IV PUSH PRN (13:05)
[2016-10-08] MEDS ORDERED: oxyCODONE TAB* 5 MG TAB PO PRN (13:07)
[2016-10-08] MEDS: Simethicone CHEW TAB* 80 MG PO PRN (13:55)
[2016-10-08] MEDS: traMADol TAB* 50 MG PO PRN ×2 (15:36→22:43)
[2016-10-08] MEDS ORDERED: Atorvastatin* 20 MG TAB PO SCH (17:00)
[2016-10-08] MEDS: Insulin LISPRO* 1 UNITS UNIT SUBCUT SCH ×2 (17:27→21:08)
[2016-10-08] MEDS: CMCS - Pravastatin (NF) 20 MG TAB PO SCH (20:03)
[2016-10-08] MEDS: Docusate CAP* 100 MG PO SCH (20:04)
[2016-10-08] MEDS: Diltiazem CD CAP* 120 MG PO SCH (20:04)
[2016-10-08] MEDS: Pregabalin CAP(*) 25 MG PO SCH (20:04)
[2016-10-08] MEDS: Nortriptyline CAP* 10 MG PO SCH (20:04)
[2016-10-08] MEDS: Methocarbamol TAB* 500 MG PO PRN (20:05)
--- NOTE | 2016-10-08 22:30 | HP ---
INPATIENT HISTORY AND PHYSICAL: DATE OF ADMISSION: 10/08/16 REASON FOR ADMISSION: Left total knee replacement. HISTORY OF PRESENT ILLNESS: Ms. Alda Aguilar is a 80-year-old female. She has a medical history significant for diabetes mellitus. She has had ongoing difficulties with left knee pain for many years. She fell several years ago and has had severe left knee pain since. She had tried and failed conservative treatment including physical therapy as well as having had other treatments. She sought treatment with Dr. Kaitlynn Sy. X-rays were taken which showed severe end- stage osteoarthritis. It was decided the best course of action would be for her to have a total knee replacement. She was admitted to [facility] on 10/05/16 and underwent a total knee replacement that day. Postoperatively, her course was notable for acute blood loss anemia. Otherwise, she has been stable. She is now being admitted for inpatient rehab so that she might return to independent living. PAST MEDICAL HISTORY: Significant for the aforementioned diabetes. She also has a history of spinal stenosis. She has seen Dr. Delacruz in the pain clinic. She was taking tramadol prior to admission. She has a history of chronic kidney disease stage 3. CURRENT MEDICATIONS: Include: 1. Cardizem CD. 2. Lantus insulin. 3. Lispro insulin. 4. Coumadin for DVT prophylaxis. 5. Lyrica. 6. Pamelor. Prior to admission, she was also taking pravastatin as well as lisinopril and hydrochlorothiazide. ALLERGIES: SUDAFED. SOCIAL HISTORY: She is a nonsmoker, nondrinker. Lives by herself in a 2- carlos house. She has several siblings living near by. PHYSICAL EXAMINATION VITAL SIGNS: The patient's temperature is 97.9, blood pressure is 171/62, pulse is 92, respirations 16. HEENT: Her extraocular movements are intact. Tongue is midline. NECK: Supple. LUNGS: Sound clear to auscultation bilaterally. HEART: Sounds are regular. S1 and S2 audible. ABDOMEN: Soft and nontender. EXTREMITIES: Her left knee has a wound which is clean and dry. Peripheral pulses are intact. NEUROLOGIC: She is awake, alert, oriented. Muscle strength is 5/5 in both upper and lower extremities except the left lower extremity which is 3/5 secondary to pain. FUNCTIONAL EXAM: The patient transfers with min assist of 2 people. ASSESSMENT: 1. Left total knee replacement. 2. Diabetes mellitus. PLAN: We are going to integrate her into a comprehensive and therapeutic rehab program. We will have the following goals: 1. Physical Therapy will see the patient. They are going to work on functional transfer training, ambulation training with a walker. 2. Occupational Therapy will see the patient and work on her activities of daily living, including toileting and toilet transfers. 3. Coumadin for DVT prophylaxis. We are going to hold her Coumadin tonight as her protime is supratherapeutic. 4. Adequate analgesia. 5. Her bowels will be regulated. 6. senior administrative services officer will be closely involved to make sure that any services and equipment that the patient requires are in place prior to discharge. 7. For her diabetes, fingersticks 4 times a day with appropriate insulin coverage. We are going to add back in her metformin. Continue her Lantus. 8. We will resume her hydrochlorothiazide and lisinopril as her blood pressure allows. 9. Advance directives: The patient is a full code. 10. Home with appropriate services. ESTIMATED LENGTH OF STAY: Ten days. [id number]/CPS #: [id number] MTDD
[2016-10-09] MEDS: Simethicone CHEW TAB* 80 MG PO PRN ×2 (00:23→20:05)
[2016-10-09] MEDS: traMADol TAB* 50 MG PO PRN ×3 (06:09→22:02)
[2016-10-09] MEDS: Docusate CAP* 100 MG PO SCH ×2 (07:43→21:56)
[2016-10-09] MEDS: metFORMIN* 500 MG TAB PO SCH (07:43)
[2016-10-09] MEDS: Hydrochlorothiazide TAB* 25 MG PO SCH (07:43)
[2016-10-09] MEDS: oxyCODONE TAB* 5 MG TAB PO PRN ×2 (07:43→18:12)
[2016-10-09] MEDS: Insulin LISPRO* 1 UNITS UNIT SUBCUT SCH ×4 (07:45→22:04)
[2016-10-09] MEDS: Insulin GLARGINE(*) 1 UNITS UNIT SUBCUT SCH (07:45)
[2016-10-09] MEDS: Methocarbamol TAB* 500 MG PO PRN ×2 (10:44→22:01)
[2016-10-09] MEDS: Warfarin TAB(*) 3 MG PO SCH (16:52)
[2016-10-09] MEDS: CMCS - Pravastatin (NF) 20 MG TAB PO SCH (21:55)
[2016-10-09] MEDS: Pregabalin CAP(*) 25 MG PO SCH (21:56)
[2016-10-09] MEDS: Diltiazem CD CAP* 120 MG PO SCH (21:56)
[2016-10-09] MEDS: Nortriptyline CAP* 10 MG PO SCH (21:56)
[2016-10-10] MEDS: traMADol TAB* 50 MG PO PRN ×2 (03:46→15:43)
[2016-10-10 06:34] LABS: Hematocrit 26 % (35-47); Hemoglobin 8.6 g/dl (12.0-16.0); Mean Corpuscular HGB Conc 33 g/dl (31-36); Mean Corpuscular Hemoglobin 30 pg (27-31); Mean Corpuscular Volume 91 fL (80-97); Mean Platelet Volume 9 um3 (7.4-10.4); Red Blood Count 2.82 10^6/ul (4.0-5.4); Red Cell Distribution Width 13 % (10.5-15); White Blood Count 7.4 10^3/ul (3.5-10.8)
[2016-10-10] MEDS: oxyCODONE TAB* 5 MG TAB PO PRN (07:03)
[2016-10-10] MEDS: Lisinopril TAB* 10 MG PO SCH (08:09)
[2016-10-10] MEDS: Docusate CAP* 100 MG PO SCH ×2 (08:09→20:50)
[2016-10-10] MEDS: Hydrochlorothiazide TAB* 25 MG PO SCH (08:09)
[2016-10-10] MEDS: metFORMIN* 500 MG TAB PO SCH (08:09)
[2016-10-10] MEDS: Insulin LISPRO* 1 UNITS UNIT SUBCUT SCH ×4 (08:10→20:54)
[2016-10-10] MEDS: Insulin GLARGINE(*) 1 UNITS UNIT SUBCUT SCH (08:10)
[2016-10-10] MEDS: Methocarbamol TAB* 500 MG PO PRN ×2 (12:10→20:50)
[2016-10-10] MEDS: Warfarin TAB(*) 3 MG PO SCH (17:12)
[2016-10-10] MEDS: Diltiazem CD CAP* 120 MG PO SCH (20:49)
[2016-10-10] MEDS: CMCS - Pravastatin (NF) 20 MG TAB PO SCH (20:50)
[2016-10-10] MEDS: Pregabalin CAP(*) 25 MG PO SCH (20:51)
[2016-10-10] MEDS: Nortriptyline CAP* 10 MG PO SCH (20:52)
[2016-10-11] MEDS: traMADol TAB* 50 MG PO PRN ×3 (01:14→17:23)
[2016-10-11] MEDS: Methocarbamol TAB* 500 MG PO PRN ×3 (03:39→15:37)
[2016-10-11 06:24] LABS: Hematocrit 24 % (35-47); Hemoglobin 8.1 g/dl (12.0-16.0); Mean Corpuscular HGB Conc 34 g/dl (31-36); Mean Corpuscular Hemoglobin 31 pg (27-31); Mean Corpuscular Volume 91 fL (80-97); Mean Platelet Volume 9 um3 (7.4-10.4); Red Blood Count 2.64 10^6/ul (4.0-5.4); Red Cell Distribution Width 13 % (10.5-15); White Blood Count 6.3 10^3/ul (3.5-10.8)
[2016-10-11 06:59] LABS: Albumin 2.6 g/dL (3.2-5.2); BUN/Creatinine Ratio 18.8 (8-20); Calcium 8.2 mg/dL (8.6-10.3); EGFR African American 72.3 (>60); EGFR Non-African American 56.2 (>60); Globulin 2.9 g/dL (2-4); Potassium 4.2 mmol/L (3.5-5.0); Total Bilirubin 0.3 mg/dL (0.2-1.0); Total Protein 5.5 g/dL (6.4-8.9)
[2016-10-11] MEDS: oxyCODONE TAB* 5 MG TAB PO PRN ×2 (07:06→23:16)
[2016-10-11] MEDS: Insulin LISPRO* 1 UNITS UNIT SUBCUT SCH ×4 (08:25→21:03)
[2016-10-11] MEDS: Insulin GLARGINE(*) 1 UNITS UNIT SUBCUT SCH (08:28)
[2016-10-11] MEDS: Docusate CAP* 100 MG PO SCH ×2 (08:31→20:59)
[2016-10-11] MEDS: metFORMIN* 500 MG TAB PO SCH (08:31)
[2016-10-11] MEDS: Lisinopril TAB* 10 MG PO SCH (08:32)
[2016-10-11] MEDS: Hydrochlorothiazide TAB* 25 MG PO SCH (08:35)
--- NOTE | 2016-10-11 14:31 | PMRUTEAM ---
PMRU: Goals Current Status: Nursing: Current Status Skin Deviations [Left Knee] Incision Skin Deviation Description [ Sutures intact Left Knee] Physical Therapy: Current Status Bed Mobility Assistance Not Tested Transfer Moblility Assistance Supervision,Contact Guard Assist Transfer/Bed Mobility Rolling Walker Recommended Devices Ambulation Assistance Contact guard Ambulation Assistive Devices Rolling Walker Number of Feet Patient 90' Ambulated Stairs Assistance NT Stairs Recommended Devices Two Rails Number of Stairs 5 Objective Comments Pt stated doing ex in bed before getting OOB helped a lot. Occupational Therapy: Current Status Upper Body Dressing Supervision Lower Body Dressing Contact Guard Assist,Min Assist Bathing Mod Assist Toileting Max Asst Toilet Transfer Contact Guard Assist,Min Assist Shower Transfer Contact Guard Assist Eating Independent Rec Therapy: Current Status Summary of Assessment and Pt. was open to meeting with mortgage loan underwriter, she kept her Clinical Impression eyes closed for much of the conversation but continued to share about her life. Pt. states she enjoys her life and was interested in continued leisure visits. Treatment Goals Pt. will engage in leisure activities while on the unit. Treatment Plan Provide RT services and encourage involvement. Social Work: Current Status Discharge Plan return home with home care svs and family support Potential for Family Training pt's sister is involved and supportive Anticipated Discharge Home Destination Discharge With VNS and family support Goals: Physical Therapy: Updated Goals Transfer/Bed Mobility Independent with Rolling Walker, Independent amb 150 feet Recommended Devices Occupational Therapy: Initial Goals Goals to be Completed in (Days 5-7 ) Upper Body Bathing Routine Independent Lower Body Bathing Routine Modified Independent with Upper Body Dressing Routine Independent Lower Body Dressing Routine Modified Independent with Toilet Hygeine and Clothing Modified Independent with Management Routine Toilet Transfer Routine Modified Independent with Step-In Shower Transfer Modified Independent with Routine Tub Transfer Routine Modified Independent with Functional Transfers for ADL Modified Independent with Grooming Routine Independent Feeding Routine Independent Light Housekeeping Tasks Minimal Contact Assist Nutrition: Goals Intervention Goals 1. Intake will remain adequate to promote post-op healing 2. BG will be adequately controlled per inpt parameters 3. Pt will establish regular bowel pattern without constipation post-op 4. Any further ed needs r/t Coumadin will be addressed as needed Social Work: Goals Discharge Plan return home with home care svs and family support Potential for Family Training pt's sister is involved and supportive Anticipated Discharge Home Destination Discharge With VNS and family support Care Plan: Care Plan ADL's - Improve/Maintain Start: 10/09/16 00:54 Freq: DAILY Status: Active Target: Activity Type Activity Date Activity User E-Sign Co-Sign Detail Recorded Client Recorded Date Recorded By Document 10/09/16 11:57 [id number] 10/09/16 11:58 [id number] 10/09/16 11:57 PMRU Outcome: ADL's/ADL Transfers Orders/Interventions Occupational Therapy Evaluation & Treatment Communication Tool in Patient Room Device Yes: FWW, gait belt Address Deficits Secondary To: s/p Left TKA Patient to receive OT 5x/wk for 60-120 Therex min/day Self Care Management Group Therapy UE/LE ADL's with Assist Yes: Dale ADL Transfers with Assist Yes: Dale Toileting: Transfers,Clothing Management Yes: Dale ,Hygeine w/Assist Light Kitchen/Laundry w/Assist Yes: Naga Progression Toward Outcome/Goals Progressing Outcome/Goals Met Pt participated well in shower for ADL evaluation this date. Coping/Psych-Improve/Maintain Start: 10/09/16 00:54 Freq: DAILY Status: Active Target: Activity Type Activity Date Activity User E-Sign Co-Sign Detail Recorded Client Recorded Date Recorded By Document 10/11/16 11:28 [id number] 10/11/16 11:30 [id number] 10/11/16 11:28 PMRU Outcome: Coping/Psychosocial Coping Outcome/Goals Verbalization of Acceptance of Rehab Admit Verbalization of Sense of Control Over Health Status Utilization of Appropriate Problem Solving Techniques Willingness to Participate in Treatment Plan and Basic Needs Utilization of Available Support Systems Absence of Destructive Behavior to Self/Others Psychosocial Outcome/Goals Maintain/ Improve Emotional Health Demonstrates Knowledge of Healthy Coping Mechanisms Available Cooperate/ Participate in Plan Progression Toward Outcome/Goals - Progressing Coping Progression Toward Outcome/Goals - Progressing Psychosocial Outcome/Goals Met Comment pt a little anxious about pain. DVT Prophylaxis- Improve/Maintain Start: 10/09/16 00:54 Freq: DAILY Status: Active Target: Activity Type Activity Date Activity User E-Sign Co-Sign Detail Recorded Client Recorded Date Recorded By Document 10/11/16 11:28 [id number] 10/11/16 11:30 [id number] 10/11/16 11:28 PMRU Outcome: DVT Prophylaxis Outcome/Goals Remains Free of DVT Free of complications from current DVT TEDS Stockings on Every AM, Off at HS Progression Toward Outcome/Goals Progressing Discharge Planning - Improve/Maintain Start: 10/09/16 00:54 Freq: DAILY Status: Active Target: Activity Type Activity Date Activity User E-Sign Co-Sign Detail Recorded Client Recorded Date Recorded By Document 10/10/16 12:23 [id number] 10/10/16 12:24 [id number] 10/10/16 12:23 PMRU Outcome: Discharge Planning Identify Patient Needs yes Update Patient Family No Outcome/Goals Demonstrates Understanding of Discharge Plan Progression Toward Outcome/Goals Progressing Education-Improve/Maintain Start: 10/09/16 00:54 Freq: DAILY Status: Active Target: Activity Type Activity Date Activity User E-Sign Co-Sign Detail Recorded Client Recorded Date Recorded By Document 10/11/16 11:28 [id number] 10/11/16 11:30 [id number] 10/11/16 11:28 PMRU Outcome: Education Outcome/Goals Demonstrate/ Verbalize Understanding of Written Discharge Instructions Demonstrates Skills Encourage Questions Progression Toward Outcome/Goals Progressing Outcome/Goals Met Comment discussion about pain medication and alternative pain remadies /GI-Improve/Maintain Start: 10/09/16 00:54 Freq: DAILY Status: Active Target: Activity Type Activity Date Activity User E-Sign Co-Sign Detail Recorded Client Recorded Date Recorded By Document 10/11/16 11:28 [id number] 10/11/16 11:30 [id number] 10/11/16 11:28 PMRU Outcome: Genitourinary/ Gastrointestinal Genitourinary- Outcome/Goals Maintain/ Achieve Urinary Continence Maintain/ Achieve Adequate Urinary Output Remain Free of Hospital- Acquired UTI Gastrointestinal-Outcome/Goals Maintain/ Achieve Bowel Regularity in Accordance with Pt's Baseline Remain Free of Emesis Prevent Constipation Bowel Program Progression Toward Outcome/Goals - Progressing Gastrointestinal-Improve/Maintain Start: 10/08/16 12:52 Freq: DAILY Status: Complete Target: Activity Type Activity Date Activity User E-Sign Co-Sign Detail Recorded Client Recorded Date Recorded By Document 10/09/16 00:51 [id number] 10/09/16 00:53 [id number] 10/09/16 00:51 Outcome: Gastrointestinal Outcome/Goals Maintain/ Achieve Bowel Regularity in Accordance with Pt's Baseline Remain Free of Emesis Progression Toward Outcome/Goals Progressing Genitourinary-Improve/Maintain Start: 10/08/16 12:52 Freq: DAILY Status: Complete Target: Activity Type Activity Date Activity User E-Sign Co-Sign Detail Recorded Client Recorded Date Recorded By Document 10/09/16 00:51 [id number] [id number] 10/09/16 00:53 [id number] 10/09/16 00:51 Outcome: Genitourinary Outcome/Goals Maintain/ Achieve Urinary Continence Maintain/ Achieve Adequate Urinary Output Remain Free of Hospital- Acquired UTI Progression Toward Outcome/Goals Progressing Medication Administration Start: 10/09/16 00:54 Freq: DAILY Status: Active Target: Activity Type Activity Date Activity User E-Sign Co-Sign Detail Recorded Client Recorded Date Recorded By Document 10/11/16 11:28 [id number] 10/11/16 11:30 [id number] 10/11/16 11:28 PMRU Outcome: Medication Administration Assess Patient Knowledge/Teach Med No Education for all Meds Outcome/Goals Patient Independent with Medication Administration at Home Demonstrates Understanding Progression Towards Outcome/Goals Progressing Is Patient Going Home on Lovenox? No Metabolic Status- Improve/Maintain Start: 10/09/16 00:54 Freq: DAILY Status: Active Target: Activity Type Activity Date Activity User E-Sign Co-Sign Detail Recorded Client Recorded Date Recorded By Document 10/11/16 11:28 [id number] 10/11/16 11:30 [id number] 10/11/16 11:28 PMRU Outcome: Metabolic Status Have Fingersticks Been Ordered Yes Fingerstick Order Frequency AC & HS Outcome/Goals Maintain/ Improve Metabolic Status Demonstrate Knowledge of Prevention/ Treatment of Metabolic Imbalances Other Progression Toward Outcome/Goals Progressing Mobility- Improve/Maintain Start: 10/08/16 15:24 Freq: DAILY Status: Active Target: Activity Type Activity Date Activity User E-Sign Co-Sign Detail Recorded Client Recorded Date Recorded By Document 10/11/16 12:41 [id number] 10/11/16 12:41 [id number] 10/11/16 12:41 PMRU Outcome: Mobility Physical Therapy Evaluation and Yes Treatment Activity OOB with Assistance Yes WBAT Yes Device Yes Assistance Yes Patient to be seen 5x/wk for 60-120 min/ Therex day for: Mobility Training Gait Training Balance Other Therapy Comment ROM Outcome/Goals Maintain/ Achieve Baseline Mobility Status Improve Mobility Status Demonstrates Proper Use of Assistive Devices Free from Complications of Immobility Progression Toward Outcome/Goals Progressing Bed Mobility Yes: Independent Transfers Yes: Modified Independent with RW Gait x ft Yes: Modified Independent 150 ' with RW Up/Down Stairs Yes: Independent 5 steps 2 rails With HEP Yes: Independent Mobility-Improve/Maintain Start: 10/08/16 12:52 Freq: DAILY Status: Complete Target: Activity Type Activity Date Activity User E-Sign Co-Sign Detail Recorded Client Recorded Date Recorded By Document 10/09/16 00:51 [id number] 10/09/16 00:53 [id number] 10/09/16 00:51 Outcome: Mobility Outcome/Goals Maintain/ Achieve Baseline Mobility Status Improve Mobility Status Demonstrates Proper Use of Assistive Devices Progression Toward Outcome/Goals Progressing Neurological- Improve/Maintain Start: 10/09/16 00:54 Freq: DAILY Status: Active Target: Activity Type Activity Date Activity User E-Sign Co-Sign Detail Recorded Client Recorded Date Recorded By Document 10/11/16 11:28 [id number] 10/11/16 11:30 [id number] 10/11/16 11:28 PMRU Outcome: Neurological Weakness/Aphasia Weakness Right Side Outcome/Goals Maintain/ Achieve Baseline Neurological Status Maintain/ Improve Strength/ROM Progression Toward Outcome/Goals Progressing Pain/Comfort- Improve/Maintain Start: 10/09/16 00:54 Freq: DAILY Status: Active Target: Activity Type Activity Date Activity User E-Sign Co-Sign Detail Recorded Client Recorded Date Recorded By Document 10/11/16 11:28 [id number] 10/11/16 11:30 [id number] 10/11/16 11:28 PMRU Outcome: Pain/Comfort Outcome/Goals Demonstrates Knowledge and Use of Available Comfort Measures Achieves Acceptable Comfort/Pain Level as Determined by Patient/Condit Maintain Comfort Level Allowing Patient to Fully Participate in Rehab Other Outcome/Goals PRN Medications given with little improvement Progression Toward Outcome/Goals Progressing Pain/Comfort-Improve/Maintain Start: 10/08/16 12:52 Freq: DAILY Status: Complete Target: Activity Type Activity Date Activity User E-Sign Co-Sign Detail Recorded Client Recorded Date Recorded By Document 10/09/16 00:51 [id number] [id number] 10/09/16 00:53 [id number] 10/09/16 00:51 Outcome: Pain/Comfort Outcome/Goals Demonstrates Knowledge and Use of Available Comfort Measures Achieves Acceptable Comfort/Pain Level as Determined by Patient/Condit Other Outcome/Goals gas pain and knee pain. Mylicon 80mg given Progression Toward Outcome/Goals Progressing Safety- Improve/Maintain Start: 10/09/16 00:54 Freq: DAILY Status: Complete Target: Activity Type Activity Date Activity User E-Sign Co-Sign Detail Recorded Client Recorded Date Recorded By Document 10/10/16 22:30 [id number] 10/10/16 22:41 [id number] 10/10/16 22:30 PMRU Outcome: Safety Outcome/Goals Remain Free of Injury or Harm Cooperates with Safety Measures for Least Restrictive Environment Prevent Falls/ Injury Equipment Needed Progression Toward Outcome/Goals Progressing Outcome/Goals Met Remain Free of Injury or Harm Cooperates with Safety Measures for Least Restrictive Environment Prevent Falls/ Injury Outcome/Goals Met Comment PA removed, pt A/O x4, using CB appropriately thus far. Skin- Improve/Maintain Start: 10/09/16 00:54 Freq: DAILY Status: Active Target: Activity Type Activity Date Activity User E-Sign Co-Sign Detail Recorded Client Recorded Date Recorded By Document 10/11/16 11:28 [id number] 10/11/16 11:30 [id number] 10/11/16 11:28 PMRU Outcome: Skin Skin Risk Level Medium Skin Orders Dressing Change Turn/Position q2hr While in Bed Outcome/Goals Maintain/ Improve Skin Intergrity Surgical Incisions Healing Progression Toward Outcome/Goals Progressing Medicine Note: Length of Stay: 4 days Anticipated Discharge Destination: Home Tentative Discharge Date: 10/15/16 Discharged to: Home
[2016-10-11] MEDS: Warfarin TAB(*) 3 MG PO SCH (17:23)
[2016-10-11] MEDS: CMCS - Pravastatin (NF) 20 MG TAB PO SCH (20:59)
[2016-10-11] MEDS: Diltiazem CD CAP* 120 MG PO SCH (21:00)
[2016-10-11] MEDS: Nortriptyline CAP* 10 MG PO SCH (21:00)
[2016-10-11] MEDS: Pregabalin CAP(*) 25 MG PO SCH (21:01)
[2016-10-12] MEDS: traMADol TAB* 50 MG PO PRN ×3 (03:07→17:35)
[2016-10-12] MEDS: oxyCODONE TAB* 5 MG TAB PO PRN ×3 (06:30→21:07)
[2016-10-12] MEDS: Insulin LISPRO* 1 UNITS UNIT SUBCUT SCH ×4 (08:11→21:08)
[2016-10-12] MEDS: Insulin GLARGINE(*) 1 UNITS UNIT SUBCUT SCH (08:13)
[2016-10-12] MEDS: Hydrochlorothiazide TAB* 25 MG PO SCH (08:15)
[2016-10-12] MEDS: Cyclobenzaprine TAB* 10 MG PO PRN ×3 (08:16→21:06)
[2016-10-12] MEDS: Lisinopril TAB* 10 MG PO SCH (08:17)
[2016-10-12] MEDS: metFORMIN* 500 MG TAB PO SCH (08:17)
[2016-10-12] MEDS: Docusate CAP* 100 MG PO SCH ×2 (08:18→20:45)
--- NOTE | 2016-10-12 12:44 | PMRUTEAM ---
PMRU: Goals Current Status: Nursing: Current Status Skin Deviations [Left Knee] Incision Skin Deviation Description [ Rewraped sid wrap due to a pin prick type pain Left Knee] under knee. Sutures in place, well approximated, no drainage or redness noted. Telfa still in place Physical Therapy: Current Status Bed Mobility Assistance Supervision,Min Assist Transfer Moblility Assistance Supervision Transfer/Bed Mobility Rolling Walker,Railings Recommended Devices Transfer Mobility Comment Sit to stand S x 1. Ambulation Assistance Supervision Ambulation Assistive Devices Rolling Walker Number of Feet Patient 175 Ambulated Ambulation Comment Step to evolveing to step through Stairs Assistance Not Tested Stairs Recommended Devices Two Rails Number of Stairs 5 Objective Comments Pt complains of L heel pain. She has a difficult time repositioning limb on her own Occupational Therapy: Current Status Upper Body Dressing Supervision Lower Body Dressing Supervision,Contact Guard Assist Lower Body Dressing Progress Use of long handled shoe horn and sock aide prn. Bathing Supervision Toileting Supervision Toileting Progress CGA and FWW for clothing management Toilet Transfer Contact Guard Assist Toilet Transfer Progress CGA, gait belt, and FWW Shower Transfer Contact Guard Assist Shower Transfer Progress Pt can step over shower lip in room shower while using grab bars and CGA Eating Ind with Adaptive Equip Eating Progress Use of partial dentures. Rec Therapy: Current Status Summary of Assessment and RT assessment complete and pt. is aware of Clinical Impression services. Pt. has been talkative and engaged during leisure sessions. Treatment Goals Pt. will engage in leisure activities while on the unit. Treatment Plan Provide RT services and encourage involvement. Social Work: Current Status Discharge Plan Return home with home care svs and family support Potential for Family Training pt's sister is involved and supportive Anticipated Discharge Home Destination Discharge With VNS and family support Nutrition: Current Status Monitoring continues to eat well w/consistent carb diet, small portions. FS remains elevated (often low- mid 200s). Recent rise in A1c to 8% (from 6.5% in May) suggesting recent suboptimal control. Metformin resumed 10/09 (as at home); Lantus 24 units as at home (pt uses Toujeo SoloStar pen). She did receive Coumadin/vit K education on 10/06; will follow up for any questions. Goals: Physical Therapy: Initial Goals Bed Mobility Assistance Independent Transfer Mobility Assistance Independent Transfer/Bed Mobility Rolling Walker Recommended Devices Ambulation Independent Ambulation Recommended Devices Rolling Walker Ambulation Distance 150 Stairs Assistance Independent Stair Recommended Devices Two Rails Number of Stairs 5 Home Exercise Program Independent Assistance Physical Therapy: Updated Goals Bed Mobility Assistance Independent Transfer/Bed Mobility Rolling Walker Recommended Devices Ambulation Assistance Independent Ambulation Assistive Devices Rolling Walker Ambulation Distance (ft) 150 Stairs Assistance Independent Stairs Recommended Devices Two Rails Number of Stairs 5 Home Exercise Program Independent Assistance Occupational Therapy: Initial Goals Goals to be Completed in (Days 5-7 ) Upper Body Bathing Routine Independent Lower Body Bathing Routine Modified Independent with Upper Body Dressing Routine Independent Lower Body Dressing Routine Modified Independent with Toilet Hygeine and Clothing Modified Independent with Management Routine Toilet Transfer Routine Modified Independent with Step-In Shower Transfer Modified Independent with Routine Tub Transfer Routine Modified Independent with Functional Transfers for ADL Modified Independent with Grooming Routine Independent Feeding Routine Independent Light Housekeeping Tasks Minimal Contact Assist Nutrition: Goals Intervention Goals 1. Intake will remain adequate to promote post-op healing 2. BG will be adequately controlled per inpt parameters 3. Pt will establish regular bowel pattern without constipation post-op 4. Any further ed needs r/t Coumadin will be addressed as needed Social Work: Goals Discharge Plan Return home with home care svs and family support Potential for Family Training pt's sister is involved and supportive Anticipated Discharge Home Destination Discharge With VNS and family support Care Plan: Care Plan ADL's - Improve/Maintain Start: 10/09/16 00:54 Freq: DAILY Status: Active Target: Activity Type Activity Date Activity User E-Sign Co-Sign Detail Recorded Client Recorded Date Recorded By Document 10/11/16 15:11 [id number] 10/11/16 15:12 [id number] 10/11/16 15:11 PMRU Outcome: ADL's/ADL Transfers Orders/Interventions Occupational Therapy Evaluation & Treatment Communication Tool in Patient Room Device Yes: FWW, gait belt Address Deficits Secondary To: s/p Left TKA Patient to receive OT 5x/wk for 60-120 Therex min/day Self Care Management Group Therapy UE/LE ADL's with Assist Yes: Dale ADL Transfers with Assist Yes: Dale Toileting: Transfers,Clothing Management Yes: Dale ,Hygeine w/Assist Light Kitchen/Laundry w/Assist Yes: Naga Progression Toward Outcome/Goals Progressing Outcome/Goals Met Pt progressing towards goals. Pt demonstartes competency with sock-aide and will continue to reassess need for LE dressing equipment. Coping/Psych-Improve/Maintain Start: 10/09/16 00:54 Freq: DAILY Status: Active Target: Activity Type Activity Date Activity User E-Sign Co-Sign Detail Recorded Client Recorded Date Recorded By Document 10/12/16 09:55 [id number] 10/12/16 09:57 [id number] 10/12/16 09:55 PMRU Outcome: Coping/Psychosocial Coping Outcome/Goals Verbalization of Acceptance of Rehab Admit Verbalization of Sense of Control Over Health Status Utilization of Appropriate Problem Solving Techniques Willingness to Participate in Treatment Plan and Basic Needs Utilization of Available Support Systems Absence of Destructive Behavior to Self/Others Psychosocial Outcome/Goals Maintain/ Improve Emotional Health Demonstrates Knowledge of Healthy Coping Mechanisms Available Cooperate/ Participate in Plan Progression Toward Outcome/Goals - Progressing Coping Progression Toward Outcome/Goals - Progressing Psychosocial Outcome/Goals Met Comment pt anxious about pain and comfort. DVT Prophylaxis- Improve/Maintain Start: 10/09/16 00:54 Freq: DAILY Status: Active Target: Activity Type Activity Date Activity User E-Sign Co-Sign Detail Recorded Client Recorded Date Recorded By Document 10/12/16 09:55 [id number] 10/12/16 09:57 [id number] 10/12/16 09:55 PMRU Outcome: DVT Prophylaxis Outcome/Goals Remains Free of DVT Free of complications from current DVT TEDS Stockings on Every AM, Off at HS Progression Toward Outcome/Goals Progressing Discharge Planning - Improve/Maintain Start: 10/09/16 00:54 Freq: DAILY Status: Active Target: Activity Type Activity Date Activity User E-Sign Co-Sign Detail Recorded Client Recorded Date Recorded By Document 10/12/16 00:46 [id number] 10/12/16 00:47 [id number] 10/12/16 00:46 PMRU Outcome: Discharge Planning Identify Patient Needs yes Update Patient Family No Outcome/Goals Demonstrates Understanding of Discharge Plan Progression Toward Outcome/Goals Progressing Education-Improve/Maintain Start: 10/09/16 00:54 Freq: DAILY Status: Active Target: Activity Type Activity Date Activity User E-Sign Co-Sign Detail Recorded Client Recorded Date Recorded By Document 10/12/16 09:55 [id number] 10/12/16 09:57 [id number] 10/12/16 09:55 PMRU Outcome: Education Outcome/Goals Demonstrate/ Verbalize Understanding of Written Discharge Instructions Demonstrates Skills Encourage Questions Progression Toward Outcome/Goals Progressing Outcome/Goals Met Comment discussion about pain medication and alternative pain remadies /GI-Improve/Maintain Start: 10/09/16 00:54 Freq: DAILY Status: Active Target: Activity Type Activity Date Activity User E-Sign Co-Sign Detail Recorded Client Recorded Date Recorded By Document 10/12/16 09:55 [id number] 10/12/16 09:57 [id number] 10/12/16 09:55 PMRU Outcome: Genitourinary/ Gastrointestinal Genitourinary- Outcome/Goals Maintain/ Achieve Urinary Continence Maintain/ Achieve Adequate Urinary Output Remain Free of Hospital- Acquired UTI Gastrointestinal-Outcome/Goals Maintain/ Achieve Bowel Regularity in Accordance with Pt's Baseline Remain Free of Emesis Prevent Constipation Bowel Program Progression Toward Outcome/Goals - Progressing Progression Toward Outcome/Goals - GI Progressing Outcome/Goals Met Comment pt up to BR Gastrointestinal-Improve/Maintain Start: 10/08/16 12:52 Freq: DAILY Status: Complete Target: Activity Type Activity Date Activity User E-Sign Co-Sign Detail Recorded Client Recorded Date Recorded By Document 10/09/16 00:51 [id number] 10/09/16 00:53 [id number] 10/09/16 00:51 Outcome: Gastrointestinal Outcome/Goals Maintain/ Achieve Bowel Regularity in Accordance with Pt's Baseline Remain Free of Emesis Progression Toward Outcome/Goals Progressing Genitourinary-Improve/Maintain Start: 10/08/16 12:52 Freq: DAILY Status: Complete Target: Activity Type Activity Date Activity User E-Sign Co-Sign Detail Recorded Client Recorded Date Recorded By Document 10/09/16 00:51 [id number] 10/09/16 00:53 [id number] 10/09/16 00:51 Outcome: Genitourinary Outcome/Goals Maintain/ Achieve Urinary Continence Maintain/ Achieve Adequate Urinary Output Remain Free of Hospital- Acquired UTI Progression Toward Outcome/Goals Progressing Medication Administration Start: 10/09/16 00:54 Freq: DAILY Status: Active Target: Activity Type Activity Date Activity User E-Sign Co-Sign Detail Recorded Client Recorded Date Recorded By Document 10/12/16 09:55 [id number] [id number] 10/12/16 09:57 [id number] 10/12/16 09:55 PMRU Outcome: Medication Administration Assess Patient Knowledge/Teach Med No Education for all Meds Outcome/Goals Patient Independent with Medication Administration at Home Demonstrates Understanding Progression Towards Outcome/Goals Progressing Is Patient Going Home on Lovenox? No Metabolic Status- Improve/Maintain Start: 10/09/16 00:54 Freq: DAILY Status: Active Target: Activity Type Activity Date Activity User E-Sign Co-Sign Detail Recorded Client Recorded Date Recorded By Document 10/12/16 09:55 [id number] [email or web address] 10/12/16 09:57 [id number] 10/12/16 09:55 PMRU Outcome: Metabolic Status Have Fingersticks Been Ordered Yes Fingerstick Order Frequency AC & HS Outcome/Goals Maintain/ Improve Metabolic Status Demonstrate Knowledge of Prevention/ Treatment of Metabolic Imbalances Other Progression Toward Outcome/Goals Progressing Mobility- Improve/Maintain Start: 10/08/16 15:24 Freq: DAILY Status: Active Target: Activity Type Activity Date Activity User E-Sign Co-Sign Detail Recorded Client Recorded Date Recorded By Document 10/11/16 12:41 [id number] 10/11/16 12:41 [id number] 10/11/16 12:41 PMRU Outcome: Mobility Physical Therapy Evaluation and Yes Treatment Activity OOB with Assistance Yes WBAT Yes Device Yes Assistance Yes Patient to be seen 5x/wk for 60-120 min/ Therex day for: Mobility Training Gait Training Balance Other Therapy Comment ROM Outcome/Goals Maintain/ Achieve Baseline Mobility Status Improve Mobility Status Demonstrates Proper Use of Assistive Devices Free from Complications of Immobility Progression Toward Outcome/Goals Progressing Bed Mobility Yes: Independent Transfers Yes: Modified Independent with RW Gait x ft Yes: Modified Independent 150 ' with RW Up/Down Stairs Yes: Independent 5 steps 2 rails With HEP Yes: Independent Mobility-Improve/Maintain Start: 10/08/16 12:52 Freq: DAILY Status: Complete Target: Activity Type Activity Date Activity User E-Sign Co-Sign Detail Recorded Client Recorded Date Recorded By Document 10/09/16 00:51 [id number] 10/09/16 00:53 [id number] 10/09/16 00:51 Outcome: Mobility Outcome/Goals Maintain/ Achieve Baseline Mobility Status Improve Mobility Status Demonstrates Proper Use of Assistive Devices Progression Toward Outcome/Goals Progressing Neurological- Improve/Maintain Start: 10/09/16 00:54 Freq: DAILY Status: Active Target: Activity Type Activity Date Activity User E-Sign Co-Sign Detail Recorded Client Recorded Date Recorded By Document 10/12/16 09:55 [id number] 10/12/16 09:57 [id number] 10/12/16 09:55 PMRU Outcome: Neurological Weakness/Aphasia Weakness Right Side Outcome/Goals Maintain/ Achieve Baseline Neurological Status Maintain/ Improve Strength/ROM Progression Toward Outcome/Goals Progressing Pain/Comfort- Improve/Maintain Start: 10/09/16 00:54 Freq: DAILY Status: Active Target: Activity Type Activity Date Activity User E-Sign Co-Sign Detail Recorded Client Recorded Date Recorded By Document 10/12/16 09:55 [id number] [id number] 10/12/16 09:57 [id number] 10/12/16 09:55 PMRU Outcome: Pain/Comfort Outcome/Goals Demonstrates Knowledge and Use of Available Comfort Measures Achieves Acceptable Comfort/Pain Level as Determined by Patient/Condit Maintain Comfort Level Allowing Patient to Fully Participate in Rehab Other Outcome/Goals 1o mg flexeral given Progression Toward Outcome/Goals Progressing Pain/Comfort-Improve/Maintain Start: 10/08/16 12:52 Freq: DAILY Status: Complete Target: Activity Type Activity Date Activity User E-Sign Co-Sign Detail Recorded Client Recorded Date Recorded By Document 10/09/16 00:51 [id number] 10/09/16 00:53 [id number] 10/09/16 00:51 Outcome: Pain/Comfort Outcome/Goals Demonstrates Knowledge and Use of Available Comfort Measures Achieves Acceptable Comfort/Pain Level as Determined by Patient/Condit Other Outcome/Goals gas pain and knee pain. Mylicon 80mg given Progression Toward Outcome/Goals Progressing Safety- Improve/Maintain Start: 10/09/16 00:54 Freq: DAILY Status: Complete Target: Activity Type Activity Date Activity User E-Sign Co-Sign Detail Recorded Client Recorded Date Recorded By Document 10/10/16 22:30 [id number] 10/10/16 22:41 [id number] 10/10/16 22:30 PMRU Outcome: Safety Outcome/Goals Remain Free of Injury or Harm Cooperates with Safety Measures for Least Restrictive Environment Prevent Falls/ Injury Equipment Needed Progression Toward Outcome/Goals Progressing Outcome/Goals Met Remain Free of Injury or Harm Cooperates with Safety Measures for Least Restrictive Environment Prevent Falls/ Injury Outcome/Goals Met Comment PA removed, pt A/O x4, using CB appropriately thus far. Skin- Improve/Maintain Start: 10/09/16 00:54 Freq: DAILY Status: Active Target: Activity Type Activity Date Activity User E-Sign Co-Sign Detail Recorded Client Recorded Date Recorded By Document 10/12/16 09:55 [id number] 10/12/16 09:57 [id number] 10/12/16 09:55 PMRU Outcome: Skin Skin Risk Level Medium Skin Orders Dressing Change Turn/Position q2hr While in Bed Outcome/Goals Maintain/ Improve Skin Intergrity Surgical Incisions Healing Progression Toward Outcome/Goals Progressing Medicine Note: Length of Stay: 3 days Anticipated Discharge Destination: Home Tentative Discharge Date: 10/15/16 Discharged to: home
[2016-10-12] MEDS: Warfarin TAB(*) 3 MG PO SCH (17:35)
[2016-10-12] MEDS: Pregabalin CAP(*) 25 MG PO SCH (20:43)
[2016-10-12] MEDS: CMCS - Pravastatin (NF) 20 MG TAB PO SCH (20:44)
[2016-10-12] MEDS: Diltiazem CD CAP* 120 MG PO SCH (20:45)
[2016-10-12] MEDS: Nortriptyline CAP* 10 MG PO SCH (20:46)
[2016-10-13] MEDS: oxyCODONE TAB* 5 MG TAB PO PRN ×3 (02:03→20:54)
[2016-10-13] MEDS: traMADol TAB* 50 MG PO PRN ×3 (05:48→18:05)
[2016-10-13] MEDS: metFORMIN* 500 MG TAB PO SCH (08:14)
[2016-10-13] MEDS: Lisinopril TAB* 10 MG PO SCH (08:15)
[2016-10-13] MEDS: Cyclobenzaprine TAB* 10 MG PO PRN ×2 (08:15→16:04)
[2016-10-13] MEDS: Docusate CAP* 100 MG PO SCH ×2 (08:15→20:53)
[2016-10-13] MEDS: Hydrochlorothiazide TAB* 25 MG PO SCH (08:17)
[2016-10-13] MEDS: Insulin LISPRO* 1 UNITS UNIT SUBCUT SCH ×4 (08:19→20:55)
[2016-10-13] MEDS: Insulin GLARGINE(*) 1 UNITS UNIT SUBCUT SCH (08:21)
[2016-10-13] MEDS: Acetaminophen TAB* 325 MG PO PRN ×2 (11:00→18:05)
[2016-10-13] MEDS: Warfarin TAB(*) 2.5 MG PO SCH (17:41)
[2016-10-13] MEDS: Pregabalin CAP(*) 25 MG PO SCH (20:53)
[2016-10-13] MEDS: CMCS - Pravastatin (NF) 20 MG TAB PO SCH (20:53)
[2016-10-13] MEDS: Nortriptyline CAP* 10 MG PO SCH (20:54)
[2016-10-13] MEDS: Diltiazem CD CAP* 120 MG PO SCH (20:55)
[2016-10-14] MEDS: traMADol TAB* 50 MG PO PRN ×3 (00:12→19:57)
[2016-10-14] MEDS: oxyCODONE TAB* 5 MG TAB PO PRN ×4 (01:10→22:07)
[2016-10-14] MEDS: Cyclobenzaprine TAB* 10 MG PO PRN ×2 (01:56→16:06)
[2016-10-14] MEDS: Insulin LISPRO* 1 UNITS UNIT SUBCUT SCH ×4 (08:33→20:21)
[2016-10-14] MEDS: Insulin GLARGINE(*) 1 UNITS UNIT SUBCUT SCH (08:42)
[2016-10-14] MEDS: Docusate CAP* 100 MG PO SCH ×2 (08:43→19:58)
[2016-10-14] MEDS: Hydrochlorothiazide TAB* 25 MG PO SCH (08:43)
[2016-10-14] MEDS: Lisinopril TAB* 10 MG PO SCH (08:44)
[2016-10-14] MEDS: metFORMIN* 500 MG TAB PO SCH (08:44)
[2016-10-14] MEDS: Warfarin TAB(*) 2.5 MG PO SCH (16:58)
[2016-10-14] MEDS: Pregabalin CAP(*) 25 MG PO SCH (19:58)
[2016-10-14] MEDS: Nortriptyline CAP* 10 MG PO SCH (19:58)
[2016-10-14] MEDS: CMCS - Pravastatin (NF) 20 MG TAB PO SCH (19:59)
[2016-10-14] MEDS: Diltiazem CD CAP* 120 MG PO SCH (20:00)
[2016-10-15] MEDS: traMADol TAB* 50 MG PO PRN (01:26)
[2016-10-15 05:57] VITALS: BP 139/60
[2016-10-15] MEDS: Lisinopril TAB* 10 MG PO SCH (08:15)
[2016-10-15] MEDS: Hydrochlorothiazide TAB* 25 MG PO SCH (08:16)
[2016-10-15] MEDS: Cyclobenzaprine TAB* 10 MG PO PRN (08:16)
[2016-10-15] MEDS: metFORMIN* 500 MG TAB PO SCH (08:16)
[2016-10-15] MEDS: Docusate CAP* 100 MG PO SCH (08:16)
[2016-10-15] MEDS: Insulin LISPRO* 1 UNITS UNIT SUBCUT SCH (08:58)
[2016-10-15] MEDS: Insulin GLARGINE(*) 1 UNITS UNIT SUBCUT SCH (08:59)
[2016-10-15] MEDS: oxyCODONE TAB* 5 MG TAB PO PRN (10:36)
--- NOTE | 2016-10-16 09:41 | DS ---
DISCHARGE SUMMARY: DATE OF ADMISSION: 10/08/16 DATE OF DISCHARGE: 10/15/16 DISCHARGE DIAGNOSES: 1. Left total knee replacement. 2. Diabetes mellitus. 3. Spinal stenosis. 4. Chronic kidney disease. HISTORY OF PRESENT ILLNESS AND HOSPITAL COURSE: For complete history of the events leading up to her rehab stay, please see the history and physical dictated by me on 10/08/16. While on the rehab unit, the patient remained stable from a medical point of view. She was maintained on Coumadin for DVT prophylaxis. Her fingersticks were in good control. The patient was seen by both physical and occupational therapy and made good gains with both disciplines. With physical therapy at the time of admission, the patient required min assist of 2 people to do a transfer and she was contact guard to ambulate about 60 feet. With occupational therapy, she was min assist for toileting and toilet transfers. By the time of discharge, the patient was independent with transfers, independent ambulating 150 feet with a front- wheeled walker, independent with toileting and toilet transfers. The patient was discharged home, 10/15/16. DISCHARGE DIET: Consistent carbohydrate. DISCHARGE MEDICATIONS: Included: 1. Flexeril 10 mg up to 3 times a day as needed. 2. Nortriptyline 10 mg at bedtime. 3. Pravachol 80 mg daily. 4. Coumadin 3 mg daily or as directed. 5. Oxycodone 5 mg every 4 hours as needed. 6. Cardizem CD 120 mg daily. 7. Toujeo insulin 24 units every morning. 8. Lyrica 75 mg at bedtime. 9. Janumet 50/500 mg one tablet daily. 10. Lisinopril 20 mg daily. 11. Tramadol 50 mg every 6 hours as needed. SERVICES AFTER DISCHARGE: Through visiting nurse service, she will have home nursing, home physical therapy, and a home health aide. FOLLOWUP: Follow up with Dr. Kaitlynn Sy on Tuesday, October 20. CC: Dereck Alex MD* [id number]/[facility] #: [id number] MTDD
== END 2016-10-15 11:20 | disposition home health service (06) | DRG 561 ==
LOC: PMRU 12:41
PROVIDERS: ADMIT Physical Medicine & Rehabilitation; ATTEND Physical Medicine & Rehabilitation
PROC: F07Z5ZZ Bed Mobility Treatment (ICD-10-PCS; principal; 2016-10-08)
PROC: F07Z9ZZ Gait Training/Functional Ambulation Treatment (ICD-10-PCS; 2016-10-08)
PROC: F07Z8ZZ Transfer Training Treatment (ICD-10-PCS; 2016-10-08)
PROC: F08Z0ZZ Bathing/Showering Techniques Treatment (ICD-10-PCS; 2016-10-08)
PROC: F08Z1ZZ Dressing Techniques Treatment (ICD-10-PCS; 2016-10-08)
PROC: F08Z3ZZ Feeding/Eating Treatment (ICD-10-PCS; 2016-10-08)
DX: Z47.1 Aftercare following joint replacement surgery (principal); E11.22 Type 2 diabetes mellitus with diabetic chronic kidney disease; N18.3 Chronic kidney disease, stage 3 (moderate); Z96.652 Presence of left artificial knee joint; I12.9 Hypertensive chronic kidney disease with stage 1 through stage 4 chronic kidney disease, or unspecified chronic kidney disease; M48.00 Spinal stenosis, site unspecified; Z79.01 Long term (current) use of anticoagulants; Z79.4 Long term (current) use of insulin; Z79.899 Other long term (current) drug therapy; Z88.2 Allergy status to sulfonamides
CPT/HCPCS: 36415; 80053; 85025; 85027; 85610; A9270-GY

== ENCOUNTER 2018-04-25 18:35 | Emergency (ER) | payer MEDICARE ==
--- OUTSIDE RECORDS SUMMARY | 2018-04-25 19:03 | XMS REPORT | Continuity of Care Document ---
:1935 External Reference #:[id number] Author Name Joshua Guerra, OD Address [address] [place] [address] Care Team Providers Name Role Phone Fredi Montalvo M.D. 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 Payers Type Date Identification Numbers Payment Provider Subscriber Expires: Policy Number: [id number] Today's Option Alda Aguilar 2016 Medicare PayID: [id number] [employer] [address] [place] [address] Policy Number: [id number] [employer] [place] Alda Aguilar PayID: [id number] [address] [place] [address] Policy Number: [id number] [facility] Options Alda Aguilar PayID: [id number] [address] [place] [address] Advance Directives Description No Information Available Problems Date Description Provider Status Onset: 04/22/2016 Excess skin of eyelid Fredi Montalvo M.D. Active Onset: 04/22/2016 Type 2 diabetes mellitus Fredi Montalvo M.D. Active Onset: 04/22/2016 Vitreous degeneration Fredi Montalvo M.D. Active Onset: 04/22/2016 Other secondary cataract, right eye Fredi Montalvo M.D. Active Onset: 04/22/2016 Other secondary cataract, left eye Fredi Montalvo M.D. Active Onset: 06/25/2016 Presence of intraocular lens Fredi Montalvo M.D. Active Family History Date Family Member(s) Problem(s) Comments General Diabetes General High BP General Heart Disease General Sister, Brother Father Heart Disease Father Heart Failure Father Arthritis Father Diabetes Mother Cataract Mother Diabetes Social History Type Date Description Comments Sex Unknown ETOH Use Rarely consumes alcohol Tobacco Use Start: Unknown Patient has never smoked Smoking Status Reviewed: 08/03/17 Patient has never smoked Allergies, Adverse Reactions, Alerts Date Description Reaction Status Severity Comments 04/22/2016 Sudafed Active 08/03/2017 Gabapentin Active Medications Medication Date Status Form Strength Qnty SIG Indications Ordering Provider Janumet XR Active Tablets ER 50-500mg Unknown 000 24HR Pravastatin Active Tablets 80mg Unknown Sodium 000 Nortriptyline Active Capsules 10mg Unknown HCL 000 Lyrica Active Capsules 75mg Unknown [address] Aspir-[address] 81mg once Unknown 000 per day by mouth Cartia XT Active Caps ER 240mg Unknown 000 24HR Lisinopril Active Tablets 20mg Unknown 000 Actos Active Tablets 15mg Unknown 000 Toujeo Solostar Active Solution 300Unit/ML Unknown 000 Pen-Inject Immunizations Description No Information Available Vital Signs Date Vital Result Comment 08/03/2017 11:16am Intraocular Pressure Right Eye 11 mmHg Intraocular Pressure Left Eye 11 mmHg 06/25/2016 11:34am Intraocular Pressure Right Eye 13 mmHg Intraocular Pressure Left Eye 12 mmHg 06/04/2016 11:06am Intraocular Pressure Right Eye 13 mmHg 04/22/2016 3:04pm Intraocular Pressure Right Eye 12 mmHg Intraocular Pressure Left Eye 12 mmHg Results Description No Information Available Procedures Date Code Description Status 08/03/2017 54982 Ophthalmoscopy Subsequent Completed 08/03/2017 57580 Oct Retina Completed 08/03/2017 09566 Refraction Completed 08/03/2017 24985 Eye Exam Est Comprehensive Completed 06/18/2016 37612 Remove Secondary Cataract, Laser (Yag) Completed 06/04/2016 00312 Remove Secondary Cataract, Laser (Yag) Completed 04/22/2016 71557 Ophthalmoscopy Initial Completed 04/22/2016 24774 Eye Exam New Comprehensive Completed Encounters Description No Information Available Plan of Treatment Future Appointment(s):04/26/2018 11:00 am - Joshua Guerra, OD at [facility] [id number] 1:15 pm - Fredi Montalvo M.D. at [facility] Cbpndl0608/03/2017 - Fredi Montalvo M.D.Z96.1 Presence of intraocular lensE11.9 Type 2 diabetes mellitus without ggnjahraumjowY73.813 Vitreous degeneration, esxkjplcjH52.3131 Nonexudative age-related macular degeneration, bilateral, early dry stageFollow up:1 yr full/rtcgtmJ20.831 Dermatochalasis of right upper eyelid
--- OUTSIDE RECORDS SUMMARY | 2018-04-25 19:04 | XMS REPORT ---
:1935 External Reference #:[id number] Author Organization [facility] Address [address] [facility] [address] [facility] [place] [address] [place] [address] Phone [phone] Care Team Providers Name Role Phone Dereck Alex MD Primary Care Physician Unavailable Payers Type Date Identification Numbers Payment Provider Subscriber Medicare Primary Policy Number: Medicare Fidel Aguilar [id number] PayID: [id number] [address] [place] [address] [employer] Expires: 2018 Policy Number: Medicare Fidel Aguilar [id number] PayID: [id number] [address] [place] [address] [employer] [employer] Policy Number: [facility] Fidel Aguilar [id number] PayID: [id number] [address] [place] [address] Commercial Expires: Policy Number: [facility]/Norwegian Fidel Tong 2016 [id number] pr Lauren PayID: [id number] [address] [address] Attn: [place] [address] Commercial Expires: 2015 Policy Number: [employer] Tong [id number] (Oon) Lauren Group Name: [employer] [address] [address] PayID: [id number] [place] [address] Problems Date Description Provider Status Onset: 11/03/2015 Localized, primary osteoarthritis Kaitlynn Sy M.D. Active Onset: 11/19/2015 Sprain of lateral collateral ligament of Kaitlynn Yossi, M.D. Active left knee, subs Onset: 10/20/2016 Arthroplasty of knee Kaitlynn Sy M.D. Active Family History Date Family Member(s) Problem(s) Comments General Heart Disease General Diabetes Father due to KS () Father due to KS () - at age 62 Mother KS Mother due to CHF () Onset: (04/08/2017) Siblings 2 Siblings 2 PMH 6 stents Social History Type Date Description Comments Marital Status Lives With Alone Occupation Retired ETOH Use Rarely consumes alcohol Smoking Patient has never smoked Recreational Drug Use Denies Drug Use Daily Caffeine Consumes on average 2 cups of regular coffee per day Exercise Type/Frequency Does not exercise Allergies, Adverse Reactions, Alerts Date Description Reaction Status Severity Comments 11/03/2015 Sudafed active 12/13/2016 Gabapentin active Medications Medication Date Status Form Strength Qnty SIG Indications Ordering Provider Amoxicillin 08/11/ Active Capsules 500mg 8caps take 4 tabs Kaitlynn 2018 by mouth 1 Yossi, hour prior M.D. to dental work Pravastatin / Active Tablets 80mg 1 by mouth Unknown Sodium 0000 every day Diltiazem HCL / Active Tablets 240mg 1 by mouth Unknown 0000 every day Tramadol HCL / Active Tablets 50mg 1-2 tablets Unknown 0000 every 6 hours as needed Nortriptyline / Active Capsules 10mg 1 caps by Unknown HCL 0000 mouth every night as directed Multi For Her / Active Capsules 1 by mouth Unknown 50+ 0000 every day Vitamin C / Active Chewtabs 500mg 1 by mouth Unknown 0000 every day in the winter Miles-3 / Active Capsules 1000mg once a day Unknown 0000 Aspirin Ec Low / Active Tablets DR 81mg 1 by mouth Unknown Dose 0000 every day Vit D / Active Tablets 1000 1 po qd Unknown 0000 Accu-Chek Judith / Active Strips Test Blood Unknown Plus 0000 Sugars Two Times A Day And as Needed Janumet / Active Tablets 50-500mg 1 by mouth Unknown 0000 daily Tylenol / Active 500mg 1 by mouth Unknown 0000 three times a day as needed for pain Systane Ultra / Active Solution 0.4-0.3% 1 drop each Unknown 0000 eye at hs Tresiba / Active Solution 100Unit/ML inject 20 Unknown Flextouch 0000 Pen-Inject units each morning Vitamin B-12 / Active Tablets 1000mcg 1 by mouth Unknown 0000 every day Actos / Active Tablets 15mg 1 tab by Unknown 0000 mouth daily Na Allergy / Active Tablets 180mg 1 by mouth Unknown 0000 every day Hydroxyzine HCL / Active Tablets 10mg 2 tabs by Unknown 0000 mouth in the evening Lisinopril / Active Tablets 10mg 1 by mouth Unknown 0000 every day Amoxicillin 01/26/ Hx Tablets 500mg 4tabs take 4 Kaitlynn2016 - tablets by Yossi, 12/21/ mouth 1 M.D. 2018 hour before dental procedure Gabapentin 11/05/ Hx Capsules 300mg 30cap 1 tab by Kaitlynn 2016 - s mouth Yossi, 11/05/ before bed M.D. 2016 Oxycodone-Aceta 10/21/ Hx Tablets 5-325mg 60tab 1-2 tab by Kaitlynn mingokul 2016 - s mouth every Yossi, 12/21/ 4-6 hours M.D. 2017 as needed for pain Please deliver medication to patient. Bactrim DS 09/27/ Hx Tablets 800-160mg 6tabs take 1 by Kaitlynn 2017 - mouth twice Yossi, 11/04/ a day for 3 M.D. 2016 days Warfarin Sodium 09/24/ Hx Tablets 2mg 90tab take 1-3 Kaitlynn 2017 - s tabs by Yossi, 03/15/ mouth at M.D. 2017 5pm nightly Oxycodone-Aceta 09/24/ Hx Tablets 5-325mg 90tab 1-2 tabs by Kaitlynn mingokul 2016 - s mouth every Yossi, 03/15/ 4-6 hours M.D. 2016 as needed for pain Colace 09/24/ Hx Capsules 100mg 90cap 1 tab by Kaitlynn 2017 - s mouth 2-3 Yossi, 12/21/ times a day M.D. 2017 as needed (rare use) Oxycodone HCL 04/17/ Hx Capsules 5mg 45cap 1-2 qid prn Maykel Basilio 2008 - s Jabier, 05/23/ M.DKaren 2015 Lantus Solostar / Hx Solution Unknown 0000 - Pen-Inject 2016 Lisinopril-Hydr / Hx Tablets 20-12.5mg 1 po daily Unknown ochlorothiazide - 2017 Echinacea / Hx Capsules 80mg 1 po qd Unknown - 2017 Novolog / Hx Unknown - 2016 Diltiazem HCL / Hx Caps ER 120mg Isai, ER 0000 - 12HR MD Dereck 2016 Metformin HCL / Hx Tablets 500mg Salman 0000 - MD Dereck 2016 Lyrica / Hx Capsules 75mg 1 po q hs Artis, 0000 - Susy., 03/05/ SYSTEMS INTEGRATION ANALYST/PA 2017 Tougiovanni Solostar / Hx Solution 300Unit/ML 28 units Unknown 0000 - Pen-Inject daily or as 2017 Novolog Flexpen / Hx Solution 100Unit/ML 150-200 14 Unknown 0000 - Pen-Inject u 201-220 u 2017 Iron / Hx Tablets 325(65Fe) 1 by mouth Unknown 0000 - mg every day 2017 Calcium 600 + D / Hx Tablets 600-200mg- 1 by mouth Unknown 0000 - Unit perday 2017 Medications Administered in Office Medication Date Status Form Strength Qnty SIG Indications Ordering Provider Depomedrol Administered Injection Rossy 40MG Kirk Meek M.D. Depomedrol Administered Injection Rossy 40MG Kirk Meek M.D. Depomedrol Administered Injection Kaitlynn 40MG Kirk Sy M.D. Vital Signs Date Vital Result Comment 04/03/2018 Height 64.5 inches 5'4.50" Weight 201.25 lb w/ shoes Heart Rate 80 /min BP Systolic Sitting 142 mmHg lue reg cuff BP Diastolic Sitting 62 mmHg lue reg cuff BMI (Body Mass Index) 34.0 kg/m2 Ejection Fraction 55-60% echo 05/25/17 03/06/2018 Height 64.5 inches 5'4.50" Weight 202.00 lb w/shoes Heart Rate 96 /min BP Systolic Sitting 122 mmHg Lue lg cuff BP Diastolic Sitting 68 mmHg Lue lg cuff BMI (Body Mass Index) 34.1 kg/m2 Ejection Fraction 55-60% Echo 05/25/17 12/21/2017 Height 64.5 inches 5'4.50" Weight 194.00 lb BP Systolic Sitting 130 mmHg BP Diastolic Sitting 84 mmHg BMI (Body Mass Index) 32.8 kg/m2 06/17/2017 Height 64.5 inches 5'4.50" Weight 194.00 lb w/shoes Heart Rate 86 /min BP Systolic Sitting 152 mmHg LA lg cuff BP Diastolic Sitting 80 mmHg LA lg cuff BMI (Body Mass Index) 32.8 kg/m2 Ejection Fraction 55-60% Echo 05/25/17 04/08/2017 Height 64.5 inches 5'4.50" Weight 187.25 lb with shoes Heart Rate 68 /min BP Systolic Sitting 132 mmHg LA reg cuff BP Diastolic Sitting 74 mmHg LA reg cuff BMI (Body Mass Index) 31.6 kg/m2 03/16/2017 Height 64.5 inches 5'4.50" Weight 185.00 lb Respiratory Rate 14 /min Pain Level 1 BMI (Body Mass Index) 31.3 kg/m2 12/13/2016 Height 64.5 inches 5'4.50" Weight 185.00 lb BP Systolic 130 mmHg BP Diastolic 76 mmHg Respiratory Rate 18 /min Body Temperature 98.3 F Pain Level 2 BMI (Body Mass Index) 31.3 kg/m2 11/05/2016 Height 64.5 inches 5'4.50" Weight 185.00 lb Heart Rate 80 /min BP Systolic 130 mmHg BP Diastolic 68 mmHg Respiratory Rate 16 /min Body Temperature 97.8 F Pain Level 4 BMI (Body Mass Index) 31.3 kg/m2 10/20/2016 Height 64.5 inches 5'4.50" Weight 185.00 lb BP Systolic 119 mmHg BP Diastolic 62 mmHg Respiratory Rate 16 /min Body Temperature 97.5 F Pain Level 7 BMI (Body Mass Index) 31.3 kg/m2 09/24/2016 Height 64.5 inches 5'4.50" Weight 185.00 lb Heart Rate 87 /min BP Systolic 138 mmHg BP Diastolic 63 mmHg Body Temperature 97.4 F BMI (Body Mass Index) 31.3 kg/m2 08/25/2016 Height 65 inches 5'5" Weight 190.00 lb patient states. Heart Rate 81 /min BP Systolic 150 mmHg BP Diastolic 69 mmHg Respiratory Rate 17 /min Body Temperature 98.6 F Pain Level 10 BMI (Body Mass Index) 31.6 kg/m2 11/26/2015 Height 65 inches 5'5" Weight 185.00 lb Heart Rate 93 /min BP Systolic 145 mmHg BP Diastolic 70 mmHg Pain Level 8 BMI (Body Mass Index) 30.8 kg/m2 11/19/2015 Height 65 inches 5'5" Weight 185.00 lb Pain Level 1 BMI (Body Mass Index) 30.8 kg/m2 11/03/2015 Height 65 inches 5'5" Weight 185.00 lb Heart Rate 93 /min BP Systolic 150 mmHg BP Diastolic 79 mmHg BMI (Body Mass Index) 30.8 kg/m2 Results Test Date Test Result H/L Range Note Urine Culture And 09/24/2016 Urine Culture SEE RESULT BELOW 1, 2 Sensitivities Type & Screen 09/24/2016 Patient Blood A Positive 1 Type Antibody Screen NEGATIVE 1 Urinalysis Profile 09/24/2016 Urine Color Yellow 1 Urine Appearance Cloudy 1 Urine Specific [place] 1.010 1.010-1.030 1 Urine pH 6.0 5-9 1 Urine Urobilinogen Negative Negative 1 Urine Ketones Negative Negative 1 Urine Protein Negative Negative 1 Urine Leukocytes 3+ Negative 1 Urine Blood Negative Negative 1 * * Negative 1, 3 Urine Nitrite Negative Negative 1 Urine Bilirubin Negative Negative 1 Urine Glucose 3+(>=500 mg/dL) Negative 1 Urine White Blood Cell 3+(>20/hpf) Absent 1 Urine Red Blood Cell Trace(0-2/hpf) Absent 1 Urine Bacteria Absent Absent 1 Urine Squamous Epithelial Cell Present Absent 1 Urine Transitional Epithelial Present Absent 1 Urine Hyaline Casts Present Absent 1 Comp Metabolic Panel 09/24/2016 Sodium 133 mmol/L 133-145 1 Potassium 4.3 mmol/L 3.5-5.0 1 Chloride 95 mmol/L Low 101-111 1 Co2 Carbon Dioxide 29 mmol/L 22-32 1 Anion Gap 9 mmol/L 2-11 1 Glucose 175 mg/dL High 70-100 1 Blood Urea Nitrogen 28 mg/dL High 6-24 1 Creatinine 1.12 mg/dL High 0.51-0.95 1 BUN/Creatinine Ratio 25.0 High 8-20 1 Calcium 9.7 mg/dL 8.6-10.3 1 Total Protein 7.1 g/dL 6.4-8.9 1 Albumin 4.2 g/dL 3.2-5.2 1 Globulin 2.9 g/dL 2-4 1 Albumin/Globulin Ratio 1.4 1-3 1 Total Bilirubin 0.40 mg/dL 0.2-1.0 1 Alkaline Phosphatase 58 U/L 34-104 1 Alt 18 U/L 7-52 1 Ast 18 U/L 13-39 1 Egfr Non- 47.0 >60 1 Egfr 60.5 >60 1, 4 Laboratory test finding 09/24/2016 Partial Thrombo 24.1 seconds Low 26.0- 36.3 1, 5 Time PTT Inr/Protime 09/24/2016 Inr 0.84 Low 0.89-1.11 1 1 SD 239783 2 SEE RESULT BELOW Name: FIDEL AGUILAR : [address]: Kaitlynn Sy MD Acct: [id number] Unit: [id number] AGE: 80 Location: [facility] Re09/24/16 SEX: F Status: REG REF SPEC: [id number] OMAR: 09/24/16-[address] [facility] [address]: Kaitlynn Sy MD REQ: [id number] RECD: 09/24/166913 STATUS: COMP _ SOURCE: URINE SPDESC: ORDERED: Urine Culture COMMENTS: TAMAR [id number] QUERIES: Urine Source: Clean Catch Procedure Result Reported Site Urine Culture Final 09/25/16- 1325 ML Organism 1 STREP GROUP B [place] Count 1-10,000 (Few) CFU/ML Susceptibility testing of penicillins and other B-lactams approved by FDA for treatment of Streptococcus pyogenes (Group A Strep) and Streptococcus agalactiae (Group B Strep) is not necessary for clinical purposes and need not be done routinely, since as with vancomycin, resistant strains have not been recognized. (CLSI J987-O10;p.66) Positive isolates will be saved for one week. Please call the Microbiology Laboratory if further susceptibility testing is needed. * ML - MAIN LAB ([facility]) . END OF REPORT * ML=Testing performed at Main Lab DEPARTMENT OF PATHOLOGY, [address] [place] [address] Jhonny Maria M.D. Director [facility] # [id number] 3 *Ascorbic acid is present which may interfere with detection of blood. 4 Because ethnic data is not always readily available, this report includes an eGFR for both -Americans and non- Americans. The National Kidney Disease Education Program (NKDEP) does not endorse the use of the MDRD equation for patients that are not between the ages of 18 and 70, are , have extremes of body size, muscle mass, or nutritional status, or are non- or non-. According to the National Kidney Foundation, irrespective of diagnosis, the stage of the disease is based on the level of kidney function: Stage Description GFR(mL/min/1.73 m(2)) 1 Kidney damage with normal or decreased GFR 90 2 Kidney damage with mild decrease in GFR 60-89 3 Moderate decrease in GFR 30-59 4 Severe decrease in GFR 15-29 5 Kidney failure <15 (or dialysis) 5 SD 337610 Procedures Date CPT Code Description Status 03/23/2018 41587 Holter Monitor Review (24 hr)dr review & interp only Completed 03/21/2018 44628 ECG Monitor/Recording W/Visual Superimposition Scanning Completed 03/06/2018 58750 EKG Tracing & Interpretation Completed 02/23/2018 45546 Destruction Of Benign Lesions Any Method 1-14 lesions Completed 06/15/2017 77793 Treadmill Interp/Report Only Completed 06/15/2017 02553 Stress Test Supervsn W/Out I/R Completed 05/25/2017 83483 ECHO Transthoracic, Real-Time 2D With Doppler And Color Completed Flow 05/25/2017 44673 ECHO Transthoracic, Real-Time 2D With Doppler And Color Completed Flow 04/08/2017 21136 EKG Tracing & Interpretation Completed 10/05/2016 21426 TKR Total Knee Replacement Completed 10/05/2016 66723 TKR Total Knee Replacement Completed 09/24/2016 44654 EKG, Interpretation Only Completed 11/26/2015 79982 Inject Tendon Sheath Or Ligament Aponeurosis Eg Plantar Completed Fascia 11/03/2015 98202 Inject/Drain Joint/Bursa Major W/O US Completed 11/11/2010 Bone Mineral Density Test Completed 11/11/2010 Mammogram Completed Encounters Type Date Location Provider CPT E/M Dx Office Visit 03/06/2018 11:40a [facility] Barry King, 01597 I10 M.D. E78.2 R94.31 R00.0 Office Visit 02/23/2018 11:00a [facility] [place] [address] L82.1 I87.2 L85.3 L82.0 Office Visit 12/21/2017 2:00p [facility] Emilia Burciaga PA-C 71014 M43.16 M48.062 Office Visit 06/17/2017 3:20p [facility] Dantetayb Harriett King, 43619 I10 M.D. Z82.49 E78.4 I34.0 Office Visit 04/08/2017 2:40p [facility] Qutayb S. Christine, 96136 I10 M.D. R94.31 E78.4 E66.9 Z82.49 Office Visit 03/16/2017 11:30a [facility] Kaitlnyn Sy M.D. 57253 M25.562 C.M.A. Z96.652 M25.551 M16.11 M54.5 M54.16 Office Visit 10/07/2016 1:49p [facility], [place] [address] E11.8 Hospitalists N18.3 Z96.652 Office Visit 10/06/2016 1:49p [facility], [place] [address] E11.8 Hospitalists N18.3 Z96.652 Office Visit 10/05/2016 1:48p [facility] [address]354 N18.3 Assoc, Hospitalists USHA Yang E11.8 Z96.652 I10 Office Visit 08/25/2016 10:45a [facility] Kaitlynn Sy M.D. 06410 M25.562 C.M.A. M25.462 M17.12 M21.062 R29.6 Office Visit 11/26/2015 1:30p [facility] Rossy Meek, 90273 M65.342 Of Shena Decker M65.342 M65.352 M65.352 M65.341 M65.341 M65.351 M65.351 Office Visit 11/19/2015 11:00a [facility] Kaitlynn Sy M.D. 09048 M25.562 C.M.AKaren S83.422D M17.12 Office Visit 11/03/2015 9:45a [facility] Kait[facility]nn Sy M.D. 62332 M25.562 C.M.AKaren M17.12 M25.462 S83.422A Office Visit 04/22/2010 1:00p [facility] Maykel Eugene, 34051 756.12 Of [facility] AT [facility] 721.3 724.3 Office Visit 06/12/2008 3:20p [facility] Maykel Eugene, 70675 756.12 Of [facility] AT [facility] 724.02 Office Visit 03/27/2008 1:00p [facility] Maykel Eugene, 48551 756.12 Of [facility] AT [facility] 724.02 Plan of Care 04/03/2018 - Shannon Torrez, NPR00.0 Tachycardia, rdpydraimoxT21.2 Mixed hyperlipidemiaFollow up:[address] AlbrechtI27.20 Pulmonary hypertension , unspecified
--- NOTE | 2018-04-25 21:11 | ED ---
Throat Pain/Nasal Congestion - HPI Summary HPI Summary: This patient is a 82 year old F presenting to [facility] with a chief complaint of a johnson line in the right eye that she is unable to see above that began this afternoon. When she attempts to look above the line she describes it as only being able to see putty color. The patient reports having a cold recently in her eye for 4 days, that has been causing pressure in the eye, she has been taking mucinex for these sx. She reports having issues with her eye after cataract surgery 4 years ago, on top of this she fell and injured the eye a few years ago. The patient rates the pain 0/10 in severity. Patient denies flashing lights in the eye, MCGRATH, and eye pain. The patient has an appointment at the dry end operator tomorrow. There is a PA in the family and he urged her to come to the ED to r/o TIA, CVA, and blood clot. Pt has been also taking topamax that she began 5 days ago, she began this after a back surgery. She also has macular degeneration bilaterally and does not receive injections for this. - History of Current Complaint Chief Complaint: EDEyeProblem Hx Obtained From: Patient Onset/Duration: Lasting Hours, Still Present Severity: Mild - Allergies/Home Medications Allergies/Adverse Reactions: Allergies Allergy/AdvReac Type Severity Reaction Status Date / Time MS Pseudoephedrine Allergy Severe Pain Verified 01/10/18 14:49 [From Sudafe] gabapentin Allergy nightmares Verified 01/10/18 14:49 MS NSAIDs [NSAIDs] Allergy contradindicated Verified 01/10/18 14:49 per MD (kidney fxn) PMH/Surg Hx/FS Hx/Imm Hx Endocrine/Hematology History: Reports: Hx Diabetes Cardiovascular History: Reports: Hx Hypercholesterolemia, Hx Hypertension, Other Cardiovascular Problems/Disorders - BLE edema Denies: Hx Angina, Hx Pacemaker/ICD Respiratory History: Reports: Hx Pneumonia - 6x, Other Respiratory Problems/ Disorders - HISTORY OF PNEUMONIA-NOT IN THE LAST FEW YEARS GI History: Reports: Hx Jaundice - A TEENAGER History: Reports: Other Problems/Disorders - CKD3 Musculoskeletal History: Reports: Hx Arthritis, Hx Back Problems, Hx Scoliosis Denies: Hx Osteoporosis Sensory History: Reports: Hx Cataracts - sx 2013, Hx Contacts or Glasses, Hx Macular Degeneration Denies: Hx Hearing Aid Opthamlomology History: Reports: Hx Cataracts - sx 2013, Hx Contacts or Glasses , Hx Macular Degeneration Neurological History: Reports: Hx Headaches, Other Neuro Impairments/Disorders - SHINGLES IN 2002 Psychiatric History: Denies: Hx Panic Disorder - Surgical History Surgery Procedure, Year, and Place: LEFT KNEE ARTHOSCOPY-1990, Left knee TKA 2017. BILATERAL CATARACTS, MAR 2014 Hx Anesthesia Reactions: No Infectious Disease History: No Infectious Disease History: Reports: Hx Hepatitis, Hx Shingles - october and november Denies: Hx Clostridium Difficile, Hx Human Immunodeficiency Virus (HIV), Hx of Known/Suspected MRSA, Hx Tuberculosis, Hx Known/Suspected VRE, Hx Known/ Suspected VRSA, History Other Infectious Disease, Traveled Outside the [place] in Last 30 Days - Family History Known Family History: Positive: Cardiac Disease, Hypertension, Diabetes - Social History Lives: With Family Alcohol Use: None Alcohol Amount: glass of wine Substance Use Type: Reports: None Smoking Status (MU): Never Smoked Tobacco Review of Systems Negative: Fever Eyes: Negative - pain and flashing lights , Other - see HPI Positive: Other - "eye cold" Positive: Headache All Other Systems Reviewed And Are Negative: Yes Physical Exam - Summary Physical Exam Summary: VITAL SIGNS: Reviewed. GENERAL: Patient is a well-developed and nourished female who is lying comfortable in the stretcher. Patient is not in any acute respiratory distress. HEAD AND FACE: No signs of trauma. No ecchymosis, hematomas or skull depressions. No sinus tenderness. EYES: PERRLA, EOMI x 2, No injected conjunctiva, no nystagmus. The patient has no decrease in her field of vision. The test showed peripheral vision is intact in both eyes. She does report some defect in the upper part of the visual field. Her left eye is 20/30 right 2/50 both 20/20. Visual field intact in both eyes using confrontation method. EARS: Hearing grossly intact. Ear canals and tympanic membranes are within normal limits. MOUTH: Oropharynx within normal limits. NECK: Supple, trachea is midline, no adenopathy, no JVD, no carotid bruit, no c- spine tenderness, neck with full ROM. CHEST: Symmetric, no tenderness at palpation LUNGS: Clear to auscultation bilaterally. No wheezing or crackles. CVS: Regular rate and rhythm, S1 and S2 present, no murmurs or gallops appreciated. ABDOMEN: Soft, non-tender. No signs of distention. No rebound no guarding, and no masses palpated. Bowel sounds are normal. EXTREMITIES: FROM in all major joints, no edema, no cyanosis or clubbing. NEURO: Alert and oriented x 3. No acute neurological deficits. Speech is normal and follows commands. SKIN: Dry and warm Triage Information Reviewed: Yes Vital Signs On Initial Exam: Initial Vitals Temp Pulse Resp BP Pulse Ox 98.3 F 86 18 175/76 97 1218 18:44 1218 18:44 1218 18:44 1218 18:44 12 18:44 Vital Signs Reviewed: Yes Diagnostics - Vital Signs Vital Signs Temp Pulse Resp BP Pulse Ox 04/25/18 18:44 98.3 F 86 18 175/76 97 - Laboratory Lab Statement: Any lab studies that have been ordered have been reviewed, and results considered in the medical decision making process. EENT Course/Dx - Course Assessment/Plan: This patient is a 82 year old F presenting to [facility] with a chief complaint of a johnson line in the right eye that she is unable to see above that began this afternoon. When she attempts to look above the line she describes it as only being able to see putty color. The patient reports having a cold recently in her eye for 4 days, that has been causing pressure in the eye, she has been taking mucinex for these sx. She reports having issues with her eye after cataract surgery 4 years ago, on top of this she fell and injured the eye a few years ago. The patient rates the pain 0/10 in severity. Patient denies flashing lights in the eye, MCGRATH, and eye pain. The patient has an appointment at the dry end operator tomorrow. There is a PA in the family and he urged her to come to the ED to r/o TIA, CVA, and blood clot. Pt has been also taking topamax that she began 5 days ago, she began this after a back surgery. She also has macular degeneration bilaterally and does not receive injections for this. We discussed patient care with Dr. Montalvo and he states that the patient can be discharged and he will see her in the morning. Patient will be discharged with and follow up from ophthalmology. The patient is agreeable with this plan. - Diagnoses Provider Diagnoses: Vision problem - Provider Notifications Discussed Care Of Patient With: Fredi Montalvo Time Discussed With Above Provider: 21:42 Instructed by Provider To: Other - We discussed patient care with Dr. Montalvo and he states that the patient can be discharged and he will see her in the morning. Discharge - Sign-Out/Discharge Documenting (check all that apply): Patient Departure - Discharge Plan Condition: Stable Disposition: HOME Patient Education Materials: Blurred Vision (ED) Referrals: Dereck Alex MD [Primary Care Provider] - 3 Days Additional Instructions: Please keep your appointment with the dry end operator tomorrow. Follow up with your primary care physician in 1-3 days. RETURN TO THE EMERGENCY DEPARTMENT FOR CHANGING OR WORSENING SYMPTOMS. - Attestation Statements Document Initiated by Scribe: Yes Documenting Scribe: Kei Soto Provider For Whom Ciaranibe is Documenting (Include Credential): Nandini Hudson MD Scribe Attestation: Kei Kurtz , scribed for Nandini Hudson MD on 04/25/18 at 9396. Status of Scribe Document: Ready
[2018-04-25 22:15] VITALS: BP 151/80
== END 2018-04-25 22:14 | disposition home or self-care (01) ==
LOC: ED 18:35
DX: H53.9 Unspecified visual disturbance (principal); Z88.6 Allergy status to analgesic agent; Z88.8 Allergy status to other drugs, medicaments and biological substances
CPT/HCPCS: 99282

== ENCOUNTER 2023-04-04 18:52 | Inpatient (IN) ==
[2023-04-04 20:44] LABS: Albumin 3.6 g/dL (3.2-5.2); Albumin/Globulin Ratio 1.2 (1-3); Calcium 9.4 mg/dL (8.6-10.3); Creatinine, Serum 0.86 mg/dL (0.51-0.95); Globulin 3.1 g/dL (2-4); Magnesium 1.6 mg/dL (1.9-2.7); Potassium 5.1 mmol/L (3.5-5.0); Total Bilirubin 0.4 mg/dL (0.2-1.0); Total Protein 6.7 g/dL (6.4-8.9); eGFR CKD-EPI 66.2 (>60)
[2023-04-04] MEDS ORDERED: Furosemide 20 mg/2 ml IV VIAL IV SLOW PU ONE (20:52)
[2023-04-04 21:48] LABS: ABS Basophils 0.1 10^3/uL (0.0-0.1); ABS Lymphocytes 1.5 10^3/uL (1.0-4.8); ABS Monocytes 0.8 10^3/uL (0.0-0.9); ABS Neutrophils 5.7 10^3/uL (1.5-7.6); Eosinophil % 0.2 %; Hematocrit 31.5 % (35-45); Hemoglobin 10.4 g/dL (11.5-14.3); Lymphocyte % 18.2 %; Mean Corpuscular Hemoglobin 29.4 pg (27-33); Mean Platelet Volume 7.7 fL (7.5-11.2); Platelet Count 304 10^3/uL (150-450); Red Blood Count 3.54 10^6/uL (3.63-4.92); Red Cell Distribution Width 15.2 % (12-17)
[2023-04-04 22:12] LABS: High Sensitivity Troponin 1 Hr 19 pg/mL (<15)
[2023-04-05] MEDS ORDERED: Dextran 70/Hypromellose Tears Eye Drops 15 ml BTL (for Artificials Tears) BOTH EYES PRN (02:17)
[2023-04-05] MEDS ORDERED: SODIUM ZIRCONIUM CYCLOSILICATE 5 GM PACKET PO ONE (03:48)
[2023-04-05] MEDS ORDERED: Magnesium Sulf 4 GM/100 ML IV 4,000 MG/100 ML BAG IVPB ONE (03:49)
[2023-04-05] MEDS: Enoxaparin 40 MG/0.4 ML SYR SUBCUT SCH (03:49)
[2023-04-05] MEDS: Morphine 2 MG/ML SYRINGE IV PRN ×3 (06:27→18:27)
[2023-04-05] MEDS ORDERED: Iodixanol (CONTRAST) 320 MG/ML 100 ML SDV IV ONE (07:44)
[2023-04-05 08:52] LABS: % Iron Saturation 11 % (15-55); .Transferrin 251 mg/dL (203-362); Iron 37 ug/dL (50-212); Total Iron Binding Capacity 351 mcg/dL (250-450); Unsaturated Iron Binding 314 ug/dL
[2023-04-05] MEDS ORDERED: Furosemide 40 mg/4 ml IV VIAL IV ONE ×2 (08:59→11:15)
[2023-04-05] MEDS ORDERED: SODIUM ZIRCONIUM CYCLOSILICATE 5 GM PACKET PO SCH (09:00)
[2023-04-05] MEDS ORDERED: Furosemide 20 mg/2 ml IV VIAL IV SLOW PU SCH (09:00)
[2023-04-05] MEDS ORDERED: Dextrose 50% Syringe 50 ml 25 GM/50 ML SYRINGE IV PUSH PRN (09:03)
[2023-04-05 09:05] LABS: Ferritin 34.9 ng/mL (11-307)
[2023-04-05 09:08] LABS: Folate > 20.00 ng/mL (5.90-24.80)
[2023-04-05 09:09] LABS: Vitamin B12 1219 pg/mL (180-914)
[2023-04-05 09:29] LABS: Calcium 9.3 mg/dL (8.6-10.3); Creatinine, Serum 0.8 mg/dL (0.51-0.95); Potassium 4.7 mmol/L (3.5-5.0); eGFR CKD-EPI 72.2 (>60)
[2023-04-05] MEDS: Insulin GLARGINE 100 un/ml 10 ml VIAL SUBCUT SCH (10:51)
[2023-04-05 15:47] LABS: Urine Potassium Concentration 33.3 mmol/L
[2023-04-05 17:09] LABS: Hematocrit 34.2 % (35-45); Hemoglobin 11.1 g/dL (11.5-14.3); Mean Corpuscular Hemoglobin 29.2 pg (27-33); Mean Corpuscular Hgb Conc 32.6 g/dL (31-36); Mean Corpuscular Volume 89.5 fL (80-97); Mean Platelet Volume 8.2 fL (7.5-11.2); Platelet Count 312 10^3/uL (150-450); Red Blood Count 3.82 10^6/uL (3.63-4.92); Red Cell Distribution Width 15.6 % (12-17); White Blood Count 7.7 10^3/uL (3.8-11.8)
[2023-04-05 17:19] LABS: Calcium 9.5 mg/dL (8.6-10.3); Creatinine, Serum 0.89 mg/dL (0.51-0.95); Magnesium 2.1 mg/dL (1.9-2.7); Potassium 4.7 mmol/L (3.5-5.0); eGFR CKD-EPI 63.5 (>60)
[2023-04-05] MEDS: Aspirin EC 81 mg TAB.EC (enteric coated) PO SCH (20:08)
[2023-04-05] MEDS: Senna TAB 8.6 mg TAB PO PRN (20:43)
[2023-04-06] MEDS: Enoxaparin 40 MG/0.4 ML SYR SUBCUT SCH (03:27)
[2023-04-06] MEDS ORDERED: Furosemide 40 mg/4 ml IV VIAL IV SLOW PU ONE (04:10)
[2023-04-06] MEDS ORDERED: Albuterol 2.5mg/3 ml (0.083%) NEB.SOLN INH ONE (04:33)
[2023-04-06] MEDS: Albuterol 2.5mg/3 ml (0.083%) NEB.SOLN INH SCH ×2 (04:37→07:41)
[2023-04-06 06:20] LABS: Calcium 9.1 mg/dL (8.6-10.3); Creatinine, Serum 0.92 mg/dL (0.51-0.95); Potassium 4.2 mmol/L (3.5-5.0)
[2023-04-06] MEDS ORDERED: Albuterol 2.5mg/3 ml (0.083%) NEB.SOLN INH PRN (07:48)
[2023-04-06] MEDS ORDERED: Furosemide 40 mg/4 ml IV VIAL IV ONE (08:59)
[2023-04-06] MEDS: Insulin GLARGINE 100 un/ml 10 ml VIAL SUBCUT SCH (09:54)
[2023-04-06] MEDS ORDERED: Sulfur Hexaflouride MICROSPHR 25 MG VIAL ONE (10:06)
[2023-04-06] MEDS ORDERED: Dextran 70/Hypromellose Tears Eye Drops 15 ml BTL (for Artificials Tears) BOTH EYES PRN (15:11)
[2023-04-06] MEDS: Aspirin EC 81 mg TAB.EC (enteric coated) PO SCH (20:54)
[2023-04-07] MEDS: Enoxaparin 40 MG/0.4 ML SYR SUBCUT SCH (03:59)
[2023-04-07 08:22] LABS: Anion Gap 9 mmol/L (2-16); Blood Urea Nitrogen 20 mg/dL (6-24); CO2 Carbon Dioxide 32 mmol/L (22-32); Calcium 9.1 mg/dL (8.6-10.3); Chloride 93 mmol/L (101-111); Creatinine, Serum 0.91 mg/dL (0.51-0.95); Glucose 51 mg/dL (70-100); Sodium 134 mmol/L (135-145); eGFR CKD-EPI 61.8 (>60)
[2023-04-07] MEDS: Insulin GLARGINE 100 un/ml 10 ml VIAL SUBCUT SCH ×2 (09:41→10:11)
[2023-04-07 10:00] LABS: Magnesium 1.8 mg/dL (1.9-2.7); Potassium Redraw 4.1 mmol/L (3.5-5.0)
[2023-04-07] MEDS: Senna TAB 8.6 mg TAB PO PRN (10:13)
[2023-04-07] MEDS ORDERED: Magnesium Sulfate 2 gm BAG 2 GM/50 ML BAG IVPB ONE (13:23)
[2023-04-07] MEDS ORDERED: Furosemide 20 mg/2 ml IV VIAL IV ONE (15:54)
[2023-04-07] MEDS: Aspirin EC 81 mg TAB.EC (enteric coated) PO SCH (20:46)
[2023-04-08] MEDS: Enoxaparin 40 MG/0.4 ML SYR SUBCUT SCH (05:11)
[2023-04-08 07:04] LABS: Calcium 9.2 mg/dL (8.6-10.3); Creatinine, Serum 0.94 mg/dL (0.51-0.95); Potassium 4.2 mmol/L (3.5-5.0); eGFR CKD-EPI 59.5 (>60)
[2023-04-08] MEDS: Insulin GLARGINE 100 un/ml 10 ml VIAL SUBCUT SCH (08:59)
[2023-04-08] MEDS: Aspirin EC 81 mg TAB.EC (enteric coated) PO SCH (21:21)
[2023-04-09] MEDS: Enoxaparin 40 MG/0.4 ML SYR SUBCUT SCH (03:52)
[2023-04-09 06:30] LABS: Hematocrit 29.2 % (35-45); Hemoglobin 9.6 g/dL (11.5-14.3); Mean Corpuscular Hemoglobin 29.4 pg (27-33); Mean Corpuscular Hgb Conc 32.9 g/dL (31-36); Mean Corpuscular Volume 89.3 fL (80-97); Mean Platelet Volume 7.8 fL (7.5-11.2); Platelet Count 218 10^3/uL (150-450); Red Blood Count 3.27 10^6/uL (3.63-4.92); Red Cell Distribution Width 15.3 % (12-17); White Blood Count 4.7 10^3/uL (3.8-11.8)
[2023-04-09 06:52] LABS: Albumin 3.1 g/dL (3.2-5.2); Albumin/Globulin Ratio 1.1 (1-3); Calcium 9.2 mg/dL (8.6-10.3); Creatinine, Serum 0.76 mg/dL (0.51-0.95); Globulin 2.7 g/dL (2-4); Potassium 4.1 mmol/L (3.5-5.0); Total Bilirubin 0.5 mg/dL (0.2-1.0); Total Protein 5.8 g/dL (6.4-8.9); eGFR CKD-EPI 76.7 (>60)
[2023-04-09] MEDS: Insulin GLARGINE 100 un/ml 10 ml VIAL SUBCUT SCH (11:12)
[2023-04-09] MEDS: Aspirin EC 81 mg TAB.EC (enteric coated) PO SCH (20:38)
[2023-04-10 07:56] LABS: Hematocrit 30.7 % (35-45); Hemoglobin 9.9 g/dL (11.5-14.3); Mean Corpuscular Hgb Conc 32.3 g/dL (31-36); Mean Corpuscular Volume 89.8 fL (80-97); Mean Platelet Volume 8.1 fL (7.5-11.2); Platelet Count 224 10^3/uL (150-450); Red Blood Count 3.41 10^6/uL (3.63-4.92); Red Cell Distribution Width 15.5 % (12-17); White Blood Count 4.4 10^3/uL (3.8-11.8)
[2023-04-10 08:05] LABS: Albumin 3.2 g/dL (3.2-5.2); Albumin/Globulin Ratio 1.1 (1-3); Calcium 9.5 mg/dL (8.6-10.3); Creatinine, Serum 0.85 mg/dL (0.51-0.95); Globulin 2.9 g/dL (2-4); Magnesium 1.9 mg/dL (1.9-2.7); Potassium 4.3 mmol/L (3.5-5.0); Total Bilirubin 0.4 mg/dL (0.2-1.0); Total Protein 6.1 g/dL (6.4-8.9); eGFR CKD-EPI 67.1 (>60)
[2023-04-10] MEDS: Insulin GLARGINE 100 un/ml 10 ml VIAL SUBCUT SCH (09:43)
[2023-04-10] MEDS: Enoxaparin 40 MG/0.4 ML SYR SUBCUT SCH (09:43)
[2023-04-10 14:46] LABS: INR 1.1 (0.83-1.13)
[2023-04-10] MEDS ORDERED: Magnesium Sulfate 2 gm BAG 2 GM/50 ML BAG IVPB ONE (20:01)
[2023-04-10] MEDS: Aspirin EC 81 mg TAB.EC (enteric coated) PO SCH (21:12)
[2023-04-11] MEDS ORDERED: NS 0.9% 1000 ml BAG 1,000 ML IV SCH (06:00)
[2023-04-11 06:50] LABS: Anion Gap 5 mmol/L (2-16); Blood Urea Nitrogen 34 mg/dL (6-24); CO2 Carbon Dioxide 32 mmol/L (22-32); Calcium 9.6 mg/dL (8.6-10.3); Chloride 95 mmol/L (101-111); Glucose 139 mg/dL (70-100); Sodium 132 mmol/L (135-145); eGFR CKD-EPI 49.2 (>60)
[2023-04-11] MEDS: Enoxaparin 40 MG/0.4 ML SYR SUBCUT SCH (07:52)
[2023-04-11] MEDS ORDERED: Regadenoson 0.4 MG/5 ML SYRINGE ONE ×2 (12:15→12:26)
[2023-04-11] MEDS ORDERED: Aminophylline 25 MG/ML VIAL ONE ×2 (12:15→12:26)
[2023-04-11] MEDS ORDERED: Furosemide 40 mg/4 ml IV VIAL IV ONE (14:54)
[2023-04-11 15:19] LABS: Magnesium 2.1 mg/dL (1.9-2.7); Potassium 4.3 mmol/L (3.5-5.0)
[2023-04-11] MEDS: Aspirin EC 81 mg TAB.EC (enteric coated) PO SCH (20:08)
[2023-04-12 06:15] LABS: ABS Eosinophils 0.1 10^3/uL (0.0-0.5); ABS Lymphocytes 1.2 10^3/uL (1.0-4.8); ABS Monocytes 0.6 10^3/uL (0.0-0.9); ABS Neutrophils 2.3 10^3/uL (1.5-7.6); Eosinophil % 2.7 %; Hematocrit 30.7 % (35-45); Hemoglobin 10.2 g/dL (11.5-14.3); Lymphocyte % 29.1 %; Mean Corpuscular Hemoglobin 29.6 pg (27-33); Mean Corpuscular Hgb Conc 33.1 g/dL (31-36); Mean Corpuscular Volume 89.6 fL (80-97); Mean Platelet Volume 8.4 fL (7.5-11.2); Nucleated Red Blood Cells % 0.1 %/100WBC (0.0-0.8); Platelet Count 202 10^3/uL (150-450); Red Blood Count 3.43 10^6/uL (3.63-4.92); Red Cell Distribution Width 15.6 % (12-17); White Blood Count 4.3 10^3/uL (3.8-11.8)
[2023-04-12 06:36] LABS: Calcium 9.4 mg/dL (8.6-10.3); Creatinine, Serum 0.85 mg/dL (0.51-0.95); Phosphorus 3.7 mg/dL (2.5-5.0); Potassium 4.3 mmol/L (3.5-5.0); eGFR CKD-EPI 67.1 (>60)
[2023-04-12] MEDS ORDERED: Sulfur Hexaflouride MICROSPHR 25 MG VIAL ONE (08:21)
[2023-04-12] MEDS: Insulin GLARGINE 100 un/ml 10 ml VIAL SUBCUT SCH (10:01)
[2023-04-12] MEDS: Enoxaparin 40 MG/0.4 ML SYR SUBCUT SCH (10:04)
[2023-04-12] MEDS ORDERED: Furosemide 40 mg/4 ml IV VIAL IV ONE (11:09)
[2023-04-12] MEDS: Senna TAB 8.6 mg TAB PO PRN (17:25)
[2023-04-12] MEDS: Aspirin EC 81 mg TAB.EC (enteric coated) PO SCH (21:26)
[2023-04-13 07:39] LABS: ABS Eosinophils 0.1 10^3/uL (0.0-0.5); ABS Lymphocytes 1.3 10^3/uL (1.0-4.8); ABS Monocytes 0.5 10^3/uL (0.0-0.9); ABS Neutrophils 1.8 10^3/uL (1.5-7.6); ABS Nucleated RBC 0.01 10^3/ul; Eosinophil % 2.8 %; Hematocrit 30.1 % (35-45); Hemoglobin 9.8 g/dL (11.5-14.3); Lymphocyte % 34.4 %; Mean Corpuscular Hemoglobin 29.1 pg (27-33); Mean Corpuscular Hgb Conc 32.6 g/dL (31-36); Mean Corpuscular Volume 89.5 fL (80-97); Mean Platelet Volume 8.7 fL (7.5-11.2); Nucleated Red Blood Cells % 0.2 %/100WBC (0.0-0.8); Platelet Count 192 10^3/uL (150-450); Red Blood Count 3.36 10^6/uL (3.63-4.92); Red Cell Distribution Width 15.5 % (12-17); White Blood Count 3.8 10^3/uL (3.8-11.8)
[2023-04-13 07:59] LABS: Calcium 9.4 mg/dL (8.6-10.3); Creatinine, Serum 0.91 mg/dL (0.51-0.95); Magnesium 1.8 mg/dL (1.9-2.7); Phosphorus 3.6 mg/dL (2.5-5.0); Potassium 4.1 mmol/L (3.5-5.0); eGFR CKD-EPI 61.8 (>60)
[2023-04-13] MEDS: Empagliflozin 25 MG TAB PO SCH (08:18)
[2023-04-13] MEDS: Insulin GLARGINE 100 un/ml 10 ml VIAL SUBCUT SCH (08:42)
[2023-04-13] MEDS ORDERED: Magnesium Sulfate IV 1GM/100ML 1 GM/100 ML BAG IV ONE (11:19)
[2023-04-13] MEDS ORDERED: Furosemide 40 mg/4 ml IV VIAL IV ONE (11:20)
[2023-04-13] MEDS: Enoxaparin 40 MG/0.4 ML SYR SUBCUT SCH (11:30)
[2023-04-13] MEDS: Aspirin EC 81 mg TAB.EC (enteric coated) PO SCH (21:57)
[2023-04-14] MEDS: Empagliflozin 25 MG TAB PO SCH (06:02)
[2023-04-14] MEDS: Insulin GLARGINE 100 un/ml 10 ml VIAL SUBCUT SCH (08:49)
[2023-04-14] MEDS: Senna TAB 8.6 mg TAB PO PRN (09:55)
[2023-04-14] MEDS: Enoxaparin 40 MG/0.4 ML SYR SUBCUT SCH (09:55)
[2023-04-14] MEDS ORDERED: Furosemide 40 mg/4 ml IV VIAL IV ONE (12:21)
[2023-04-14] MEDS: Aspirin EC 81 mg TAB.EC (enteric coated) PO SCH (21:50)
[2023-04-15] MEDS: Empagliflozin 25 MG TAB PO SCH (06:22)
[2023-04-15 06:24] LABS: ABS Basophils 0.1 10^3/uL (0.0-0.1); ABS Eosinophils 0.1 10^3/uL (0.0-0.5); ABS Lymphocytes 1.5 10^3/uL (1.0-4.8); ABS Monocytes 0.6 10^3/uL (0.0-0.9); ABS Neutrophils 2.5 10^3/uL (1.5-7.6); ABS Nucleated RBC 0.01 10^3/ul; Hematocrit 29.7 % (35-45); Hemoglobin 9.8 g/dL (11.5-14.3); Lymphocyte % 30.5 %; Mean Corpuscular Hemoglobin 29.3 pg (27-33); Mean Corpuscular Hgb Conc 32.9 g/dL (31-36); Mean Corpuscular Volume 89.1 fL (80-97); Mean Platelet Volume 8.9 fL (7.5-11.2); Nucleated Red Blood Cells % 0.1 %/100WBC (0.0-0.8); Platelet Count 214 10^3/uL (150-450); Red Blood Count 3.34 10^6/uL (3.63-4.92); Red Cell Distribution Width 15.4 % (12-17); White Blood Count 4.9 10^3/uL (3.8-11.8)
[2023-04-15 06:51] LABS: Calcium 9.4 mg/dL (8.6-10.3); Creatinine, Serum 0.93 mg/dL (0.51-0.95); Magnesium 1.7 mg/dL (1.9-2.7); Phosphorus 3.1 mg/dL (2.5-5.0); Potassium 3.8 mmol/L (3.5-5.0); eGFR CKD-EPI 60.2 (>60)
[2023-04-15] MEDS ORDERED: Magnesium Sulfate 2 gm BAG 2 GM/50 ML BAG IVPB ONE (07:26)
[2023-04-15] MEDS ORDERED: KCL 10 MEQ/50 ML IVPREMIX 10 MEQ/50 ML BAG IV ONE (09:19)
[2023-04-15] MEDS: Enoxaparin 40 MG/0.4 ML SYR SUBCUT SCH (09:53)
[2023-04-15] MEDS: Insulin GLARGINE 100 un/ml 10 ml VIAL SUBCUT SCH (09:54)
[2023-04-15] MEDS: Aspirin EC 81 mg TAB.EC (enteric coated) PO SCH (20:39)
[2023-04-16 05:42] LABS: ABS Basophils 0.1 10^3/uL (0.0-0.1); ABS Eosinophils 0.2 10^3/uL (0.0-0.5); ABS Lymphocytes 1.5 10^3/uL (1.0-4.8); ABS Monocytes 0.6 10^3/uL (0.0-0.9); ABS Neutrophils 2.6 10^3/uL (1.5-7.6); Eosinophil % 3.3 %; Hematocrit 29.3 % (35-45); Hemoglobin 9.6 g/dL (11.5-14.3); Lymphocyte % 30.3 %; Mean Corpuscular Hemoglobin 29.3 pg (27-33); Mean Corpuscular Hgb Conc 32.8 g/dL (31-36); Mean Corpuscular Volume 89.5 fL (80-97); Mean Platelet Volume 8.9 fL (7.5-11.2); Platelet Count 212 10^3/uL (150-450); Red Blood Count 3.27 10^6/uL (3.63-4.92); Red Cell Distribution Width 15.8 % (12-17); White Blood Count 4.9 10^3/uL (3.8-11.8)
[2023-04-16] MEDS: Empagliflozin 25 MG TAB PO SCH (05:48)
[2023-04-16 06:38] LABS: Calcium 9.4 mg/dL (8.6-10.3); Creatinine, Serum 0.89 mg/dL (0.51-0.95); Phosphorus 3.7 mg/dL (2.5-5.0); Potassium 4.3 mmol/L (3.5-5.0); eGFR CKD-EPI 63.5 (>60)
[2023-04-16 06:39] LABS: Magnesium 2.1 mg/dL (1.9-2.7)
[2023-04-16] MEDS: Insulin GLARGINE 100 un/ml 10 ml VIAL SUBCUT SCH (08:56)
[2023-04-16] MEDS: Enoxaparin 40 MG/0.4 ML SYR SUBCUT SCH (08:56)
[2023-04-16] MEDS: Furosemide 40 mg/4 ml IV VIAL IV SCH (10:14)
[2023-04-16] MEDS: Aspirin EC 81 mg TAB.EC (enteric coated) PO SCH (22:14)
[2023-04-17] MEDS: Empagliflozin 25 MG TAB PO SCH (05:58)
[2023-04-17 06:31] LABS: ABS Basophils 0.1 10^3/uL (0.0-0.1); ABS Eosinophils 0.2 10^3/uL (0.0-0.5); ABS Lymphocytes 1.7 10^3/uL (1.0-4.8); ABS Monocytes 0.6 10^3/uL (0.0-0.9); ABS Neutrophils 2.1 10^3/uL (1.5-7.6); Eosinophil % 4.1 %; Hematocrit 31.4 % (35-45); Hemoglobin 10.1 g/dL (11.5-14.3); Lymphocyte % 36.6 %; Mean Corpuscular Hemoglobin 28.7 pg (27-33); Mean Corpuscular Hgb Conc 32.2 g/dL (31-36); Mean Corpuscular Volume 89.1 fL (80-97); Mean Platelet Volume 9.1 fL (7.5-11.2); Platelet Count 217 10^3/uL (150-450); Red Blood Count 3.52 10^6/uL (3.63-4.92); Red Cell Distribution Width 15.8 % (12-17); White Blood Count 4.7 10^3/uL (3.8-11.8)
[2023-04-17 06:51] LABS: Creatinine, Serum 0.9 mg/dL (0.51-0.95); Potassium 4.4 mmol/L (3.5-5.0); eGFR CKD-EPI 62.6 (>60)
[2023-04-17] MEDS: Furosemide 40 mg/4 ml IV VIAL IV SCH (08:12)
[2023-04-17] MEDS: Enoxaparin 40 MG/0.4 ML SYR SUBCUT SCH (08:13)
[2023-04-17] MEDS: Insulin GLARGINE 100 un/ml 10 ml VIAL SUBCUT SCH (08:16)
[2023-04-17] MEDS: Aspirin EC 81 mg TAB.EC (enteric coated) PO SCH (21:12)
[2023-04-17] MEDS: Cetirizine 5 mg CHEW TAB PO SCH (21:16)
[2023-04-18] MEDS: Empagliflozin 25 MG TAB PO SCH (05:31)
[2023-04-18 06:37] LABS: ABS Basophils 0.1 10^3/uL (0.0-0.1); ABS Eosinophils 0.2 10^3/uL (0.0-0.5); ABS Lymphocytes 1.4 10^3/uL (1.0-4.8); ABS Monocytes 0.5 10^3/uL (0.0-0.9); ABS Neutrophils 2.6 10^3/uL (1.5-7.6); Eosinophil % 3.9 %; Hematocrit 29.7 % (35-45); Hemoglobin 9.6 g/dL (11.5-14.3); Lymphocyte % 29.9 %; Mean Corpuscular Hgb Conc 32.5 g/dL (31-36); Mean Corpuscular Volume 89.3 fL (80-97); Mean Platelet Volume 9.6 fL (7.5-11.2); Nucleated Red Blood Cells % 0.1 %/100WBC (0.0-0.8); Platelet Count 201 10^3/uL (150-450); Red Blood Count 3.33 10^6/uL (3.63-4.92); Red Cell Distribution Width 15.9 % (12-17); White Blood Count 4.8 10^3/uL (3.8-11.8)
[2023-04-18 07:02] LABS: Calcium 9.7 mg/dL (8.6-10.3); Creatinine, Serum 1.15 mg/dL (0.51-0.95); Magnesium 1.8 mg/dL (1.9-2.7); Phosphorus 3.7 mg/dL (2.5-5.0); Potassium 4.1 mmol/L (3.5-5.0); eGFR CKD-EPI 46.7 (>60)
[2023-04-18] MEDS: Insulin GLARGINE 100 un/ml 10 ml VIAL SUBCUT SCH (07:55)
[2023-04-18] MEDS: Enoxaparin 40 MG/0.4 ML SYR SUBCUT SCH (07:55)
[2023-04-18] MEDS: Cetirizine 5 mg CHEW TAB PO SCH (07:57)
[2023-04-18] MEDS: Furosemide 40 mg/4 ml IV VIAL IV SCH (07:59)
[2023-04-18 11:44] LABS: Rapid COVID-19 Molecular Undetected (Undetected)
[2023-04-18] MEDS ORDERED: Magnesium Sulfate IV 1GM/100ML 1 GM/100 ML BAG IV ONE (16:52)
[2023-04-18] MEDS: Aspirin EC 81 mg TAB.EC (enteric coated) PO SCH (21:16)
[2023-04-19] MEDS: Empagliflozin 25 MG TAB PO SCH (05:31)
[2023-04-19 06:22] LABS: ABS Basophils 0.1 10^3/uL (0.0-0.1); ABS Eosinophils 0.2 10^3/uL (0.0-0.5); ABS Lymphocytes 1.8 10^3/uL (1.0-4.8); ABS Monocytes 0.6 10^3/uL (0.0-0.9); ABS Nucleated RBC 0.01 10^3/ul; Eosinophil % 4.1 %; Hematocrit 30.6 % (35-45); Hemoglobin 10.1 g/dL (11.5-14.3); Lymphocyte % 38.7 %; Mean Corpuscular Hemoglobin 29.4 pg (27-33); Mean Corpuscular Volume 89.1 fL (80-97); Mean Platelet Volume 9.5 fL (7.5-11.2); Nucleated Red Blood Cells % 0.2 %/100WBC (0.0-0.8); Platelet Count 212 10^3/uL (150-450); Red Blood Count 3.43 10^6/uL (3.63-4.92); White Blood Count 4.6 10^3/uL (3.8-11.8)
[2023-04-19 06:53] LABS: Calcium 9.8 mg/dL (8.6-10.3); Creatinine, Serum 1.02 mg/dL (0.51-0.95); Phosphorus 3.9 mg/dL (2.5-5.0); Potassium 4.2 mmol/L (3.5-5.0); eGFR CKD-EPI 53.9 (>60)
[2023-04-19] MEDS: Furosemide 40 mg/4 ml IV VIAL IV SCH (09:14)
[2023-04-19] MEDS: Insulin GLARGINE 100 un/ml 10 ml VIAL SUBCUT SCH (09:14)
[2023-04-19] MEDS: Enoxaparin 40 MG/0.4 ML SYR SUBCUT SCH (09:15)
[2023-04-19 11:23] VITALS: BP 132/49
== END 2023-04-19 13:21 | DRG 189 ==
LOC: ED 18:52 → EDHOLD 18:52 → SUATTDRO 23:17 → MEDTELE 04-05 15:09 → SUATTDRO 04-06 13:10
PROVIDERS: ADMIT Internal Medicine; ATTEND Internal Medicine

== ENCOUNTER 2024-01-13 21:16 | Inpatient (IN) ==
[2024-01-13] MEDS: Lactated Ringers 1000 ml BAG 1,000 ML IV ONE (22:34)
[2024-01-13 22:45] LABS: Hematocrit 33.5 % (35-45); Hemoglobin 11.2 g/dL (11.5-14.3); Mean Corpuscular Hemoglobin 31.4 pg (27-33); Mean Corpuscular Hgb Conc 33.3 g/dL (31-36); Mean Corpuscular Volume 94.3 fL (80-97); Red Blood Count 3.55 10^6/uL (3.63-4.92); Red Cell Distribution Width 14.1 % (12-17); White Blood Count 11.3 10^3/uL (3.8-11.8)
[2024-01-13 22:47] LABS: Activated Partial Thrombo Time 25.3 seconds (26.0-38.0); INR 0.99 (0.85-1.14)
[2024-01-13 23:11] LABS: Albumin 3.3 g/dL (3.2-5.2); C Reactive Protein 87.43 mg/L (<8.01); Calcium 9.4 mg/dL (8.6-10.3); Creatinine, Serum 1.76 mg/dL (0.51-0.95); Globulin 3.3 g/dL (2-4); Potassium 3.9 mmol/L (3.5-5.0); Total Bilirubin 0.6 mg/dL (0.2-1.0); Total Protein 6.6 g/dL (6.4-8.9); eGFR CKD-EPI 27.8 (>60)
[2024-01-14] MEDS: Piperacillin/Tazobac 3.375 BAG 3.375 GM/100 ML BAG IV ONE (00:05)
[2024-01-14 00:10] LABS: Mean Platelet Volume 10.4 fL (7.5-11.2); Platelet Count 235 10^3/uL (150-450)
[2024-01-14 00:11] LABS: ABS Eosinophils 0.1 10^3/uL (0.0-0.5); ABS Lymphocytes 0.2 10^3/uL (1.0-4.8); ABS Monocytes 0.4 10^3/uL (0.0-0.9); ABS Neutrophils 10.3 10^3/uL (1.5-7.6); Eosinophil % 1.3 %; Lymphocyte % 1.6 %; RBC Morphology Normal (Normal)
[2024-01-14] MEDS: Vancomycin 1,000 MG in NS 0.9% 250 ml 250 ML IVPB ONE (00:34)
[2024-01-14] MEDS: Lactated Ringers 1000 ml BAG 1,000 ML IV ONE (01:01)
[2024-01-14 01:22] LABS: High Sensitivity Troponin 1 Hr 15 pg/mL (<15)
[2024-01-14 02:19] LABS: Magnesium 1.9 mg/dL (1.9-2.7)
[2024-01-14] MEDS ORDERED: Dextrose 50% Syringe 50 ml 25 GM/50 ML SYRINGE IV PUSH PRN (02:37)
[2024-01-14] MEDS: Norepinephrine 4 MG/250mL D5W 4,000 MCG/250 ML BAG IV SCH (02:57)
[2024-01-14] MEDS ORDERED: Vancomycin per Pharmacy 1 EA NOTE FOLLOW UP SCH (05:00)
[2024-01-14] MEDS ORDERED: Zosyn per Pharmacy NOTE FOLLOW UP SCH (05:00)
[2024-01-14] MEDS: ZOSYN 3.375 GM Q8H per EXTENDED INFUSION IV SCH (05:33)
[2024-01-14] MEDS: fentaNYL 100 mcg/2 ml 50 MCG/ML VIAL IV SLOW PU ONE (05:39)
[2024-01-14] MEDS: Empagliflozin 25 MG TAB PO SCH (07:04)
[2024-01-14 07:34] LABS: Urine Appearance Clear; Urine Bilirubin Negative (Negative); Urine Blood Negative (Negative); Urine Color Light-Yellow; Urine Glucose 3+ (>=300 mg/dL) (Negative); Urine Ketones Negative (Negative); Urine Nitrite Negative (Negative); Urine Protein Trace (Negative); Urine Specific Gravity 1.027 (1.002-1.030); Urine Urobilinogen Negative (Negative)
[2024-01-14 07:36] LABS: Albumin 2.8 g/dL (3.2-5.2); Calcium 8.5 mg/dL (8.6-10.3); Creatinine, Serum 1.83 mg/dL (0.51-0.95); Globulin 2.7 g/dL (2-4); Magnesium 1.7 mg/dL (1.9-2.7); Potassium 4.1 mmol/L (3.5-5.0); Total Bilirubin 0.7 mg/dL (0.2-1.0); Total Protein 5.5 g/dL (6.4-8.9); eGFR CKD-EPI 26.6 (>60)
[2024-01-14 08:06] LABS: Hematocrit 29.7 % (35-45); Hemoglobin 10.2 g/dL (11.5-14.3); Mean Corpuscular Hemoglobin 32.3 pg (27-33); Mean Corpuscular Hgb Conc 34.4 g/dL (31-36); Red Blood Count 3.16 10^6/uL (3.63-4.92); Red Cell Distribution Width 14.3 % (12-17); White Blood Count 10.2 10^3/uL (3.8-11.8)
[2024-01-14 08:36] LABS: Urine Bacteria Absent /HPF (Absent); Urine Red Blood Cell Absent /HPF (0-Trace); Urine Squamous Epithelial Cell Present /HPF (Absent); Urine Transitional Epithelial Present /HPF (Absent); Urine White Blood Cell 1+(6-10/hpf) /HPF (0-Trace)
[2024-01-14 09:30] LABS: Platelet Count Platelets clumped. 10^3/uL (150-450)
[2024-01-14 09:32] LABS: ABS Eosinophils 0.1 10^3/uL (0.0-0.5); ABS Lymphocytes 0.3 10^3/uL (1.0-4.8); ABS Monocytes 0.3 10^3/uL (0.0-0.9); ABS Neutrophils 9.5 10^3/uL (1.5-7.6); Eosinophil % 1.4 %; Lymphocyte % 3.2 %
[2024-01-14] MEDS: Heparin 5000 UNITS/ML 1 mL VIAL SUBCUT SCH (10:10)
[2024-01-14] MEDS: Famotidine IV 10 MG/ML 2 ml VIAL (20 mg) IV SLOW PU SCH (10:10)
[2024-01-14] MEDS: Insulin GLARGINE 100 un/ml 10 ml VIAL SUBCUT SCH (10:11)
[2024-01-14] MEDS: Pentoxifylline CR 400 mg TAB 400 MG PO SCH (10:12)
[2024-01-14] MEDS: Cholecalciferol (VIT D3) 1,000 unit TAB PO SCH (10:13)
[2024-01-14] MEDS: Morphine 2 MG/ML SYRINGE IV PRN (17:00)
[2024-01-14] MEDS: Aspirin EC 81 mg TAB.EC (enteric coated) PO SCH (20:10)
[2024-01-15] MEDS: fentaNYL 100 mcg/2 ml 50 MCG/ML VIAL IV SLOW PU ONE (00:33)
[2024-01-15] MEDS: ZOSYN 3.375 GM Q12H per EXTENDED INFUSION IV SCH (01:56)
[2024-01-15 05:26] LABS: ABS Basophils 0.1 10^3/uL (0.0-0.1); ABS Eosinophils 0.6 10^3/uL (0.0-0.5); ABS Lymphocytes 1.3 10^3/uL (1.0-4.8); ABS Monocytes 0.5 10^3/uL (0.0-0.9); ABS Neutrophils 5.3 10^3/uL (1.5-7.6); Eosinophil % 7.2 %; Hematocrit 27.5 % (35-45); Hemoglobin 9.5 g/dL (11.5-14.3); Lymphocyte % 16.8 %; Mean Corpuscular Hemoglobin 32.2 pg (27-33); Mean Corpuscular Hgb Conc 34.7 g/dL (31-36); Mean Corpuscular Volume 92.8 fL (80-97); Mean Platelet Volume 9.7 fL (7.5-11.2); Platelet Count 173 10^3/uL (150-450); Red Blood Count 2.96 10^6/uL (3.63-4.92); Red Cell Distribution Width 14.3 % (12-17); White Blood Count 7.7 10^3/uL (3.8-11.8)
[2024-01-15 05:42] LABS: Albumin 2.5 g/dL (3.2-5.2); Albumin/Globulin Ratio 0.9 (1-3); Calcium 8.2 mg/dL (8.6-10.3); Creatinine, Serum 1.94 mg/dL (0.51-0.95); Globulin 2.7 g/dL (2-4); Magnesium 1.9 mg/dL (1.9-2.7); Potassium 3.6 mmol/L (3.5-5.0); Total Bilirubin 0.4 mg/dL (0.2-1.0); Total Protein 5.2 g/dL (6.4-8.9); eGFR CKD-EPI 24.8 (>60)
[2024-01-15] MEDS: Senna TAB 8.6 mg TAB PO PRN (14:22)
[2024-01-16 05:23] LABS: ABS Basophils 0.1 10^3/uL (0.0-0.1); ABS Eosinophils 0.4 10^3/uL (0.0-0.5); ABS Lymphocytes 1.2 10^3/uL (1.0-4.8); ABS Monocytes 0.4 10^3/uL (0.0-0.9); ABS Neutrophils 3.6 10^3/uL (1.5-7.6); Eosinophil % 7.6 %; Hematocrit 28.2 % (35-45); Hemoglobin 9.5 g/dL (11.5-14.3); Lymphocyte % 21.4 %; Mean Corpuscular Hemoglobin 31.2 pg (27-33); Mean Corpuscular Hgb Conc 33.5 g/dL (31-36); Mean Corpuscular Volume 93.2 fL (80-97); Mean Platelet Volume 9.3 fL (7.5-11.2); Nucleated Red Blood Cells % 0.1 %/100WBC (0.0-0.8); Platelet Count 204 10^3/uL (150-450); Red Blood Count 3.03 10^6/uL (3.63-4.92); Red Cell Distribution Width 14.5 % (12-17); White Blood Count 5.7 10^3/uL (3.8-11.8)
[2024-01-16 06:48] LABS: Albumin 2.7 g/dL (3.2-5.2); Calcium 8.8 mg/dL (8.6-10.3); Creatinine, Serum 1.99 mg/dL (0.51-0.95); Globulin 2.8 g/dL (2-4); Magnesium 2.2 mg/dL (1.9-2.7); Potassium 4.2 mmol/L (3.5-5.0); Total Bilirubin 0.3 mg/dL (0.2-1.0); Total Protein 5.5 g/dL (6.4-8.9)
[2024-01-17 05:37] LABS: ABS Basophils 0.1 10^3/uL (0.0-0.1); ABS Eosinophils 0.4 10^3/uL (0.0-0.5); ABS Lymphocytes 1.8 10^3/uL (1.0-4.8); ABS Monocytes 0.5 10^3/uL (0.0-0.9); ABS Neutrophils 4.6 10^3/uL (1.5-7.6); ABS Nucleated RBC 0.01 10^3/ul; Eosinophil % 5.4 %; Hematocrit 27.9 % (35-45); Hemoglobin 9.1 g/dL (11.5-14.3); Lymphocyte % 24.5 %; Mean Corpuscular Hemoglobin 30.8 pg (27-33); Mean Corpuscular Hgb Conc 32.7 g/dL (31-36); Mean Corpuscular Volume 94.1 fL (80-97); Mean Platelet Volume 9.3 fL (7.5-11.2); Nucleated Red Blood Cells % 0.1 %/100WBC (0.0-0.8); Platelet Count 225 10^3/uL (150-450); Red Blood Count 2.96 10^6/uL (3.63-4.92); Red Cell Distribution Width 14.4 % (12-17); White Blood Count 7.3 10^3/uL (3.8-11.8)
[2024-01-17 06:38] LABS: Albumin 2.7 g/dL (3.2-5.2); Creatinine, Serum 1.6 mg/dL (0.51-0.95); Globulin 2.7 g/dL (2-4); Magnesium 2.1 mg/dL (1.9-2.7); Potassium 4.3 mmol/L (3.5-5.0); Total Bilirubin 0.3 mg/dL (0.2-1.0); Total Protein 5.4 g/dL (6.4-8.9); eGFR CKD-EPI 31.2 (>60)
[2024-01-17 10:43] LABS: Ferritin 164.8 ng/mL (11-307)
[2024-01-17] MEDS: Amoxicillin/Clavul 875/125 TAB (Augmentin 875 tab) PO SCH (11:12)
[2024-01-18] MEDS ORDERED: Ondansetron 4 mg VIAL 2 MG/ML 2 ml VIAL IV PRN (02:39)
[2024-01-18 09:18] LABS: ABS Basophils 0.1 10^3/uL (0.0-0.1); ABS Eosinophils 0.4 10^3/uL (0.0-0.5); ABS Lymphocytes 1.7 10^3/uL (1.0-4.8); ABS Monocytes 0.6 10^3/uL (0.0-0.9); ABS Neutrophils 6.4 10^3/uL (1.5-7.6); Eosinophil % 3.9 %; Hematocrit 27.9 % (35-45); Hemoglobin 9.5 g/dL (11.5-14.3); Lymphocyte % 18.7 %; Mean Corpuscular Hemoglobin 31.7 pg (27-33); Mean Corpuscular Hgb Conc 33.9 g/dL (31-36); Mean Corpuscular Volume 93.5 fL (80-97); Mean Platelet Volume 9.1 fL (7.5-11.2); Platelet Count 226 10^3/uL (150-450); Red Blood Count 2.99 10^6/uL (3.63-4.92); Red Cell Distribution Width 14.1 % (12-17); White Blood Count 9.1 10^3/uL (3.8-11.8)
[2024-01-18 09:57] LABS: Calcium 8.9 mg/dL (8.6-10.3); Creatinine, Serum 1.17 mg/dL (0.51-0.95); Potassium 4.1 mmol/L (3.5-5.0); eGFR CKD-EPI 45.4 (>60)
[2024-01-19 09:39] VITALS: BP 148/57
== END 2024-01-19 12:00 | disposition home or self-care (01) | DRG 871 ==
LOC: ED 21:16 → EDHOLD 01-14 02:00 → ICU 01-14 15:22 → MED 01-17 17:18
PROVIDERS: ADMIT Internal Medicine Critical Care Medicine; ATTEND Hospitalist

== ENCOUNTER 2024-01-28 19:38 | Inpatient (IN) ==
[2024-01-28 22:27] LABS: ABS Basophils 0.2 10^3/uL (0.0-0.1); ABS Eosinophils 0.4 10^3/uL (0.0-0.5); ABS Lymphocytes 2.7 10^3/uL (1.0-4.8); ABS Monocytes 0.8 10^3/uL (0.0-0.9); ABS Neutrophils 4.2 10^3/uL (1.5-7.6); Eosinophil % 4.7 %; Hematocrit 31.2 % (35-45); Hemoglobin 10.1 g/dL (11.5-14.3); Mean Corpuscular Hemoglobin 30.3 pg (27-33); Mean Corpuscular Hgb Conc 32.5 g/dL (31-36); Mean Corpuscular Volume 93.3 fL (80-97); Mean Platelet Volume 9.2 fL (7.5-11.2); Platelet Count 410 10^3/uL (150-450); Red Blood Count 3.34 10^6/uL (3.63-4.92); Red Cell Distribution Width 14.9 % (12-17); White Blood Count 8.3 10^3/uL (3.8-11.8)
[2024-01-28] MEDS: ceFAZolin 1 GM in Dextrose 1 GM/50 ML BAG IVPB ONE (22:37)
[2024-01-28 22:59] LABS: ALT 11 U/L (7-52); Albumin 3.3 g/dL (3.2-5.2); Alkaline Phosphatase 87 U/L (35-149); Blood Urea Nitrogen 19 mg/dL (6-24); C Reactive Protein 13.67 mg/L (<8.01); CO2 Carbon Dioxide 33 mmol/L (22-32); Calcium 9.4 mg/dL (8.6-10.3); Chloride 95 mmol/L (101-111); Creatinine, Serum 1.25 mg/dL (0.51-0.95); Globulin 3.3 g/dL (2-4); Glucose 125 mg/dL (70-100); Sodium 136 mmol/L (135-145); Total Bilirubin 0.3 mg/dL (0.2-1.0); Total Protein 6.6 g/dL (6.4-8.9)
[2024-01-28 23:00] LABS: Anion Gap 8 mmol/L (2-16)
[2024-01-29] MEDS ORDERED: Ondansetron 4 mg VIAL 2 MG/ML 2 ml VIAL IV PRN (01:26)
[2024-01-29] MEDS ORDERED: Senna TAB 8.6 mg TAB PO PRN (02:33)
[2024-01-29] MEDS: Famotidine IV 10 MG/ML 2 ml VIAL (20 mg) IV SLOW PU ONE (02:41)
[2024-01-29] MEDS ORDERED: Dextrose 50% Syringe 50 ml 25 GM/50 ML SYRINGE IV PUSH PRN (02:50)
[2024-01-29] MEDS: cefTRIAXone 1 gm/50 mL D5W 1 GM/50 ML BAG IV SCH (06:23)
[2024-01-29 06:44] LABS: ABS Basophils 0.1 10^3/uL (0.0-0.1); ABS Eosinophils 0.3 10^3/uL (0.0-0.5); ABS Lymphocytes 2.5 10^3/uL (1.0-4.8); ABS Monocytes 0.8 10^3/uL (0.0-0.9); Hematocrit 27.8 % (35-45); Hemoglobin 9.3 g/dL (11.5-14.3); Lymphocyte % 32.5 %; Mean Corpuscular Hemoglobin 31.3 pg (27-33); Mean Corpuscular Hgb Conc 33.6 g/dL (31-36); Mean Corpuscular Volume 93.1 fL (80-97); Mean Platelet Volume 9.1 fL (7.5-11.2); Platelet Count 314 10^3/uL (150-450); Red Blood Count 2.98 10^6/uL (3.63-4.92); Red Cell Distribution Width 15.1 % (12-17); White Blood Count 7.8 10^3/uL (3.8-11.8)
[2024-01-29] MEDS ORDERED: Polyethyl Glycol/Propylene Gly OPHTH.SOLN BOTH EYES PRN (06:44)
[2024-01-29 07:17] LABS: Calcium 8.9 mg/dL (8.6-10.3); Creatinine, Serum 1.22 mg/dL (0.51-0.95); Potassium 4.1 mmol/L (3.5-5.0); eGFR CKD-EPI 43.2 (>60)
[2024-01-29] MEDS ORDERED: OMEGA PO SCH (09:00)
[2024-01-29] MEDS ORDERED: [UNRECOGNIZED DRUG - OTHER] PO SCH (09:00)
[2024-01-29] MEDS: Insulin GLARGINE 100 un/ml 10 ml VIAL SUBCUT SCH (09:18)
[2024-01-29] MEDS: Pentoxifylline CR 400 mg TAB 400 MG PO SCH (09:19)
[2024-01-29] MEDS: OMEGA-3 FATTY ACID 1000 mg(NF) PO SCH (09:19)
[2024-01-29] MEDS: Cholecalciferol (VIT D3) 1,000 unit TAB PO SCH (09:20)
[2024-01-29] MEDS: Enoxaparin 40 MG/0.4 ML SYR SUBCUT SCH (09:21)
[2024-01-29] MEDS: Vitamin THERAPEUTIC TAB PO SCH (09:21)
[2024-01-29] MEDS: NF:Multivitamins/Mins AREDS2 (NF) CAP PO SCH (09:26)
[2024-01-29] MEDS: Aspirin EC 81 mg TAB.EC (enteric coated) PO SCH (21:08)
[2024-01-30] MEDS: cefTRIAXone 1 gm/50 mL D5W 1 GM/50 ML BAG IV SCH (07:16)
[2024-01-30] MEDS: CMCS: OMEGA-3 FATTY ACID 1000 mg(NF) PO SCH (12:32)
[2024-01-30 12:38] LABS: ABS Basophils 0.1 10^3/uL (0.0-0.1); ABS Eosinophils 0.3 10^3/uL (0.0-0.5); ABS Monocytes 0.5 10^3/uL (0.0-0.9); ABS Neutrophils 5.1 10^3/uL (1.5-7.6); ABS Nucleated RBC 0.01 10^3/ul; Eosinophil % 3.1 %; Hematocrit 32.6 % (35-45); Hemoglobin 10.8 g/dL (11.5-14.3); Lymphocyte % 33.2 %; Mean Corpuscular Hemoglobin 31.2 pg (27-33); Mean Corpuscular Volume 94.6 fL (80-97); Mean Platelet Volume 9.5 fL (7.5-11.2); Nucleated Red Blood Cells % 0.1 %/100WBC (0.0-0.8); Platelet Count 389 10^3/uL (150-450); Red Blood Count 3.45 10^6/uL (3.63-4.92); Red Cell Distribution Width 15.4 % (12-17); White Blood Count 9.1 10^3/uL (3.8-11.8)
[2024-01-30 12:50] LABS: Calcium 9.8 mg/dL (8.6-10.3); Creatinine, Serum 1.38 mg/dL (0.51-0.95); Potassium 4.7 mmol/L (3.5-5.0); eGFR CKD-EPI 37.3 (>60)
[2024-01-31 08:12] LABS: C Reactive Protein 14.6 mg/L (<8.01)
[2024-01-31 10:25] LABS: Body Fluid Total Nucleated 192 /mcL
[2024-01-31 13:28] LABS: Body Fluid Mono 27 %; Body Fluid Total Cells Counted 200
[2024-01-31 13:30] LABS: Body Fluid Appearance Clear; Body Fluid Color Yellow; Body Fluid Source Synovial Fluid
[2024-01-31] MEDS ORDERED: Magnesium Hydroxide LIQ 30 ML UDC PO PRN (15:35)
[2024-02-01 06:14] LABS: ABS Basophils 0.1 10^3/uL (0.0-0.1); ABS Eosinophils 0.3 10^3/uL (0.0-0.5); ABS Lymphocytes 2.2 10^3/uL (1.0-4.8); ABS Monocytes 0.7 10^3/uL (0.0-0.9); ABS Neutrophils 1.9 10^3/uL (1.5-7.6); Eosinophil % 5.2 %; Hematocrit 28.8 % (35-45); Hemoglobin 9.8 g/dL (11.5-14.3); Lymphocyte % 42.4 %; Mean Corpuscular Hemoglobin 31.9 pg (27-33); Mean Corpuscular Hgb Conc 33.9 g/dL (31-36); Mean Corpuscular Volume 93.9 fL (80-97); Mean Platelet Volume 9.2 fL (7.5-11.2); Nucleated Red Blood Cells % 0.1 %/100WBC (0.0-0.8); Platelet Count 305 10^3/uL (150-450); Red Blood Count 3.07 10^6/uL (3.63-4.92); Red Cell Distribution Width 15.2 % (12-17); White Blood Count 5.1 10^3/uL (3.8-11.8)
[2024-02-01 06:33] LABS: Calcium 9.4 mg/dL (8.6-10.3); Creatinine, Serum 1.08 mg/dL (0.51-0.95); Potassium 4.1 mmol/L (3.5-5.0)
[2024-02-02 10:10] VITALS: BP 113/53
[2024-02-02 23:41] LABS: B. burgdorferi PCR Negative (Negative); B. garinii/B. afzellii PCR Negative (Negative)
== END 2024-02-02 15:30 | disposition home or self-care (01) | DRG 603 ==
LOC: EDHOLD 19:38 → ED 19:38 → MED 01-29 14:47
PROVIDERS: ADMIT Internal Medicine; ATTEND Internal Medicine